=== PATIENT | male | born 1935 | race Caucasian/White ===

== ENCOUNTER 2019-06-12 01:22 | Inpatient (IN) | payer MEDICARE ==
[~2019-06-12] VITALS: Ht 165.1 cm; Wt 44.5 kg
[2019-06-12 01:30] VITALS: BP 129/70
--- NOTE | 2019-06-12 01:36 | Emergency Room Report ---
History of Present Illness General Chief Complaint: Generalized Weakness Source: Patient, EMS Present Illness HPI Is an elderly 83-year-old male with no past medical history. He presents with complaint of generalized weakness. His neighbor was concerned about him. He is sits in his chair at home. He complained of abdominal pain is been going on for years but getting worse. Also decreased appetite not eating much. He said he was at [facility] about a month and a half ago. Does not remember what they did. He complained of increasing weakness and pain. Weight loss. Nausea but no vomiting. Worse with eating. Allergies: Coded Allergies: No Known Allergies (Unverified , 06/12/19) Patient History Past Medical History: see triage record, old chart reviewed Past Surgical History: other Pertinent Family History: none Social History: Denies: smoking Immunizations: other Reviewed Nursing Documentation: PMH: Agreed; PSxH: Agreed Nursing Documentation-PM Past Medical History: No Stated History Review of Systems Constitutional: Reports: malaise, weakness Eye: Denies: eye pain, blurred vision ENT: Denies: ear pain, nose congestion, throat swelling Respiratory: Denies: cough, shortness of breath Cardiovascular: Denies: chest pain, palpitations Gastrointestinal: Reports: abdominal pain, nausea; Denies: diarrhea, vomiting Musculoskeletal: Denies: back pain, joint pain Skin: Denies: rash Neurological: Denies: headache, numbness Endocrine: Denies: increased thirst, increased urine Hematologic/Lymphatic: Denies: easy bruising All Other Systems: negative except mentioned in HPI Physical Exam Vital Signs Date Time Temp Pulse Resp B/P (MAP) Pulse Ox O2 Delivery O2 Flow Rate FiO2 06/12/19 01:19 99.0 100 18 129/70 (89) 98 Room Air Vitals with low-grade fever Sp02 EP Interpretation: reviewed, normal General Appearance: alert, mild distress, cachetic Head: normocephalic, atraumatic Eyes: bilateral eye PERRL, bilateral eye EOMI ENT: hearing grossly normal, normal pharynx Neck: full range of motion, supple, no meningismus Respiratory: chest non-tender, decreased breath sounds, accessory muscle use Cardiovascular #1: regular rate, rhythm, no murmur Gastrointestinal: no mass, no organomegaly, no bruit, non-distended, tenderness - Diffuse, decreased bowel sounds Musculoskeletal: back normal, normal range of motion, gait/station normal, swelling - b/l lower ext edema Psychiatric: mood/affect normal Medical Decision Making Diagnostic Impression: Primary Impression: Pneumonia Qualified Codes: J18.9 - Pneumonia, unspecified organism Additional Impressions: Failure to thrive in adult Cachexia ER Course This is an 83-year-old patient who is very cachectic looking. He came in with weakness and shortness of breath. He has a left lower lobe infiltrate. Antibiotics given. IV fluids given. Patient lives by himself at home and can take care of himself. Likely there is a neighbor whom patient called to help him. She called 911 and brought him in. Patient will need placement or potential hospice care. No evidence of ACS, PE, dissection to name a few. I discussed the case with Dr. Bray for admission. EKG Diagnostic Results Rate: normal Rhythm: NSR ST Segments: no acute changes Rhythm Strip Diag. Results EP Interpretation: yes Rate: 100 Rhythm: NSR, no PVC's, no ectopy Chest X-Ray Diagnostic Results Chest X-Ray Diagnostic Results : Chest X-Ray Ordered: Yes # of Views/Limited/Complete: 1 View Indication: Shortness of Breath EP Interpretation: Yes Interpretation: no effusion, no pneumothorax, other - LLL infiltrate. hyperinflation Impression: Other - LLL infiltrate Electronically Signed by: Terry Mars MD Last Vital Signs Date Time Temp Pulse Resp B/P (MAP) Pulse Ox O2 Delivery O2 Flow Rate FiO2 06/12/19 01:19 99.0 100 18 129/70 (89) 98 Room Air Status: improved Disposition: ADMITTED INPATIENT Condition: Serious Terry Mars MD Jun 12, 2019 01:36
--- NOTE | 2019-06-12 01:45 | NUR ---
ED Nurse Note: pt presents to ED via [facility] 826. per EMS they picked him up from home, a neighbor called and was concerned for him because pt has been weak. per pt, he states he "doesn't want to take care of himself." pt denies bathing regularly, states that he sits in a chair all day and does not move around. pt states taht he has epigastric px for 5-6 years that has worsened in the last year. the px causes pt to became nauseated so he has not been eating or drinking much fluid. pt denies any vomiting or diarrhea. pt sees Dr. Summers at [facility] where he was last seen a couple months ago. Addendum: 06/12/19 at 0215 by QLE bilat pitting edema 3+ of lower extremities with weak pulses noted. pt's neighbor is at bedside Tere Nickerson # [phone] Addendum: 06/12/19 at 0248 by QLE pt arrived via [id number]
--- NOTE | 2019-06-12 01:50 | NUR ---
ED Nurse Note: pt appears to be cachetic and disheveled. his bones are visible, skin is flaking with healed scabs and lesions. pt is AOx4.
--- NOTE | 2019-06-12 02:02 | NUR ---
ED Nurse Note: pt states he had a CT a few months ago and refused to have another one done today. ERMD aware
[2019-06-12] MEDS ORDERED: Piperacillin/Tazobactam 3.375 GM in NS 110 ML IVPB ONE (02:15)
[2019-06-12 02:28] LABS: APPEARANCE,URINE CLEAR; BILIRUBIN, URINE NEGATIVE (NEGATIVE); COLOR,URINE PALE YELLOW; GLUCOSE, URINE (UA) NEGATIVE (NEGATIVE); KETONES,URINE NEGATIVE (NEGATIVE); LEUKOCYTE ESTERASE ,URINE 2+ (NEGATIVE); NITRITE,URINE NEGATIVE (NEGATIVE); PH,URINE 8 (4.5-8.0); PROTEIN,URINE 1+ (NEGATIVE); UROBILINOGEN,URINE NORMAL MG/DL (0.0-1.0)
[2019-06-12 02:29] LABS: HEMATOCRIT 36.4 % (42.0-52.0); MEAN CORPUSCULAR VOLUME 92 FL (80-99); PLATELET COUNT 228 K/UL (150-450); RED BLOOD COUNT 3.95 M/UL (4.70-6.10); WHITE BLOOD COUNT 4.2 K/UL (4.8-10.8)
--- NOTE | 2019-06-12 02:34 | NUR ---
Neighbor Tere Liya left her number [phone] to be called if needed.
[2019-06-12 02:46] LABS: ANION GAP 3 mmol/L (5-15); BLOOD UREA NITROGEN 12 mg/dL (7-18); CALCIUM 8.5 MG/DL (8.5-10.1); CARBON DIOXIDE 36 MMOL/L (21-32); CHLORIDE 89 MMOL/L (98-107); CREATININE 0.9 MG/DL (0.55-1.30); POTASSIUM 4.3 MMOL/L (3.5-5.1); SODIUM 128 MMOL/L (136-145)
--- NOTE | 2019-06-12 02:47 | Diagnostic Imaging Report ---
EXAM: XR Chest, 1 View CLINICAL HISTORY: SOB TECHNIQUE: Frontal view of the chest. COMPARISON: No relevant prior studies available. FINDINGS: Lungs: Heterogeneous opacity at the left lung base. No interstitial edema. Emphysematous changes. Pleural space: Unremarkable. No pneumothorax. Heart: Unremarkable. No cardiomegaly. Mediastinum: Unremarkable. Bones/joints: Unremarkable. IMPRESSION: Heterogeneous opacity at the left lung base consistent with pneumonia in the appropriate clinical setting.
[2019-06-12 02:50] LABS: ALANINE AMINOTRANSFERASE 29 U/L (12-78); ALBUMIN 3.1 G/DL (3.4-5.0); ALBUMIN/GLOBULIN RATIO 0.9 (1.0-2.7); ALKALINE PHOSPHATASE 98 U/L (46-116); ASPARTATE AMINO TRANSFERASE 32 U/L (15-37); BILIRUBIN,TOTAL 0.7 MG/DL (0.2-1.0)
[2019-06-12 03:10] VITALS: BP 127/73
--- NOTE | 2019-06-12 04:30 | NUR ---
TRANSFER TO FLOOR: Patient transferred to med/surg as ordered, per ERMD Dr. Mars. Report given to YOHAN Lira and reminded Soraya to ask Dr. Bray for social work order per pt request. . Belongings sent with pt. neighbor Tere Nickerson notified of admit and new room location
--- NOTE | 2019-06-12 04:40 | NUR ---
NURSE NOTES: Pt received from ER, A/O X 4, able to make needs known, pt with swollen bilateral extremeties +2 or +3 edema, sacral redness, opening of the skin on left upper thigh (posterior), pictures taken and uploaded, IV site on Rt forearm, no c/o pain or signs of distress just pt continuously stating he wants to and go to [facility] [place] [facility]. Pt also stated he wants to speak with a social psychologist about his living situation because he does not have anyone to help him at home, he lives by himself, he states he already has a social psychologist on [address] [place] [address] and [place]. Vitals 97.5 T, 96/58, 92%O2 room air, 97hr, pt here with FTT, weakness and pna, will call Dr. Bray for orders.
[2019-06-12] MEDS ORDERED: Albuterol ud Inhalation HHN PRN (06:45)
--- NOTE | 2019-06-12 07:03 | NUR ---
HAND-OFF: Report given to YOHAN Sampson.
[2019-06-12] MEDS ORDERED: GABAPENTIN100 MG ORAL (07:06)
[2019-06-12] MEDS ORDERED: terazosin (07:06)
[2019-06-12 08:00] VITALS: BP 112/59
--- NOTE | 2019-06-12 09:30 | NUR ---
NURSE NOTES: PT AXOX4, ANXIOUS, TALKATIVE. VSS AND IN NO APPARENT DISTRESS AT THIS TIME. BED IN LOWEST POSITION WITH BEDSIDE RAILS X3 RAISED. BED ALARM ON. WILL CONTINUE TO MONITOR.
[2019-06-12] MEDS: Heparin 5000 units/ml inj SUBQ SCH ×2 (10:11→21:10)
--- NOTE | 2019-06-12 10:16 | NUR ---
RD ASSESSMENT & RECOMMENDATIONS SEE CARE ACTIVITY FOR COMPLETE ASSESSMENT DAILY ESTIMATED NEEDS: Needs based on Underweight, wasting/ 45.5kg 30-40 kcals/kg 0543-5945 total kcals 1-2 g protein/kg 46-91 g total protein 25-30 mL/kg 5564-7205 total fluid mLs NUTRITION DIAGNOSIS: Malnutrition (severe), in the context of chronic illness R/T years of epigastric pain and gastric acid, abdominal discomfort causing poor oral intake, increased weakness, unable to care well for self, lack of help at home as evidenced by pt admitted w/ severe wasting @ BUE, clavicle area and temporalis, less than 75% of energy intakes compared to estimated needs for months, pt unable to quantify. CURRENT DIET:REGULAR, soft easy chew PO DIET RECOMMENDATIONS: REGULAR, BLAND/ texture as tolerated or per TRAINING AND QUALITY MANAGER ADDITIONAL RECOMMENDATIONS: * Calibrated bedscale wt, weekly wt monitoring given underweight status * Ensure Enlive TID w/ meals * GI consult for c/o epigastric pain/ gastric acid * Snacks BID in b/w meals as tolerated * Monitor lytes, replete as needed * Wound care: MVI x 1, Vit C 250mg QD as tolerated
[2019-06-12] MEDS: cefTRIAXone 1 GM in D5W 55 ML IVPB SCH (10:26)
[2019-06-12] MEDS: Flonase Nasal Inhaler 16gm NASAL SCH ×2 (11:50→11:54)
[2019-06-12 12:00] VITALS: BP 95/50
--- NOTE | 2019-06-12 14:50 | Consultation ---
History of Present Illness General Date patient seen: Jun 12, 2019 Reason for Hospitalization: Generalized Weakness Present Illness HPI Is an elderly 83-year-old male with no past medical history. He presents with complaint of generalized weakness. His neighbor was concerned about him. He is sits in his chair at home. He complained of abdominal pain is been going on for years but getting worse. Also decreased appetite not eating much. He said he was at [facility] about a month and a half ago. Does not remember what they did. He complained of increasing weakness and pain. Weight loss. Nausea but no vomiting. Worse with eating. On admission abnormal labs, notable open wound, malnutrition. surgery called to evaluate and assist with care. Allergies: Coded Allergies: No Known Allergies (Unverified , 06/12/19) Medication History Scheduled Gabapentin* (Gabapentin*), Unknown Dose ORAL TWICE A DAY, (Reported) Miscellaneous Medications [terazosin], (Reported) Patient History Limited by: age, medical condition History Provided By: Medical Record, PMD Healthcare decision maker Resuscitation status Full Code Advanced Directive on File Past Medical/Surgical History Past Medical/Surgical History: (1) Open wound (2) Open wound of thigh (3) Abdominal pain (4) Cachexia (5) Failure to thrive in adult (6) Pneumonia Review of Systems Review of Symptoms General ROS: no weight loss or fever Psychological ROS: no depression or mood changes, no memory loss Ophthalmic ROS: no visual changes or eye irritation ENT ROS: no nasal congestion, hearing loss, dizziness Allergy and Immunology ROS: no allergic symptoms or urticaria Hematological and Lymphatic ROS: no swollen glands, unusual bleeding or bruising Endocrine ROS: no polyuria, polydipsia, weight changes, temperature intolerance Respiratory ROS: no cough, shortness of breath, or wheezing Cardiovascular ROS: no chest pain or dyspnea on exertion Gastrointestinal ROS: abdominal pain, bright red blood in stool. Musculoskeletal ROS: no myalgias or arthralgias Neurological ROS: no TIA or stroke symptoms Dermatological ROS: no new or changing skin lesions, rashes or pruritis Physical Exam Physical Exam General appearance: alert, cooperative, no distress, appears stated age Head: Normocephalic, without obvious abnormality, atraumatic Eyes: conjunctivae/corneas clear. PERRL, EOM's intact. Fundi benign Throat: Lips, mucosa, and tongue normal. Teeth and gums normal Neck: supple, symmetrical, trachea midline, no adenopathy, thyroid: not enlarged, symmetric, no tenderness/mass/nodules, no carotid bruit and no JVD Lungs: clear to auscultation bilaterally Heart: regular rate and rhythm, S1, S2 normal, no murmur, click, rub or gallop Abdomen: soft, non-tender but uncomfortable. Bowel sounds normal. No masses, no organomegaly Extremities: extremities normal, atraumatic, no cyanosis or edema Pulses: 2+ and symmetric Skin: Skin color, texture, turgor normal. sacral erythema and thigh open wound Neurologic: Grossly normal Last 24 Hour Vital Signs Date Time Temp Pulse Resp B/P (MAP) Pulse Ox O2 Delivery O2 Flow Rate FiO2 06/12/19 08:00 96.3 93 18 112/59 (76) 91 06/12/19 05:06 Room Air 06/12/19 04:30 99.0 102 13 111/74 95 Room Air 06/12/19 03:10 102 13 127/73 95 Room Air 06/12/19 01:30 100 18 Room Air 06/12/19 01:30 99.0 90 18 129/70 98 Room Air 06/12/19 01:19 99.0 100 18 129/70 (89) 98 Room Air Intake and Output 06/11/19 06/12/19 19:00 07:00 Intake Total 2500 ml Balance 2500 ml Intake Oral 0 ml IV Total 2500 ml Laboratory Tests Test 06/12/19 01:39 06/12/19 02:00 White Blood Count 4.2 K/UL (4.8-10.8) L Red Blood Count 3.95 M/UL (4.70-6.10) L Hemoglobin 13.0 G/DL (14.2-18.0) L Hematocrit 36.4 % (42.0-52.0) L Mean Corpuscular Volume 92 FL (80-99) Mean Corpuscular Hemoglobin 33.0 PG (27.0-31.0) H Mean Corpuscular Hemoglobin Concent 35.8 G/DL (32.0-36.0) Red Cell Distribution Width 11.0 % (11.6-14.8) L Platelet Count 228 K/UL (150-450) Mean Platelet Volume 4.7 FL (6.5-10.1) L Neutrophils (%) (Auto) % (45.0-75.0) Lymphocytes (%) (Auto) % (20.0-45.0) Monocytes (%) (Auto) % (1.0-10.0) Eosinophils (%) (Auto) % (0.0-3.0) Basophils (%) (Auto) % (0.0-2.0) Differential Total Cells Counted 100 Neutrophils % (Manual) 89 % (45-75) H Lymphocytes % (Manual) 5 % (20-45) L Monocytes % (Manual) 4 % (1-10) Eosinophils % (Manual) 2 % (0-3) Basophils % (Manual) 0 % (0-2) Band Neutrophils 0 % (0-8) Platelet Estimate Adequate Platelet Morphology Normal Red Blood Cell Morphology Normal Sodium Level 128 MMOL/L (136-145) L Potassium Level 4.3 MMOL/L (3.5-5.1) Chloride Level 89 MMOL/L (98-107) L Carbon Dioxide Level 36 MMOL/L (21-32) H Anion Gap 3 mmol/L (5-15) L Blood Urea Nitrogen 12 mg/dL (7-18) Creatinine 0.9 MG/DL (0.55-1.30) Estimat Glomerular Filtration Rate mL/min (>60) Glucose Level 103 MG/DL (74-106) Calcium Level 8.5 MG/DL (8.5-10.1) Total Bilirubin 0.7 MG/DL (0.2-1.0) Aspartate Amino Transf (AST/SGOT) 32 U/L (15-37) Alanine Aminotransferase (ALT/SGPT) 29 U/L (12-78) Alkaline Phosphatase 98 U/L (46-116) Troponin I 0.006 ng/mL (0.000-0.056) Total Protein 6.6 G/DL (6.4-8.2) Albumin 3.1 G/DL (3.4-5.0) L Globulin 3.5 g/dL Albumin/Globulin Ratio 0.9 (1.0-2.7) L Lipase 152 U/L (73-393) Urine Color Pale yellow Urine Appearance Clear Urine pH 8 (4.5-8.0) Urine Specific [place] 1.015 (1.005-1.035) Urine Protein 1+ (NEGATIVE) H Urine Glucose (UA) Negative (NEGATIVE) Urine Ketones Negative (NEGATIVE) Urine Blood 1+ (NEGATIVE) H Urine Nitrite Negative (NEGATIVE) Urine Bilirubin Negative (NEGATIVE) Urine Urobilinogen Normal MG/DL (0.0-1.0) Urine Leukocyte Esterase 2+ (NEGATIVE) H Urine RBC 5-10 /HPF (0 - 0) H Urine WBC 0-2 /HPF (0 - 0) Urine Squamous Epithelial Cells Occasional /LPF Urine Bacteria Occasional /HPF (NONE) Height (Feet): 5 Height (Inches): 5.00 Weight (Pounds): 100 Medications Current Medications Medications (Trade) Dose Ordered Sig/Daina Route PRN Reason Start Time Stop Time Status Last Admin Dose Admin Acetaminophen (Tylenol) 650 mg Q4H PRN ORAL Mild Pain/Temp > 100.5 06/12/19 06:45 07/12/19 06:44 Al Hydroxide/Mg Hydroxide (Mylanta) 30 ml FOUR TIMES A DAY PRN ORAL gas 06/12/19 06:45 07/12/19 06:44 Albuterol Sulfate (Proventil) 2.5 mg Q4H PRN HHN Shortness of Breath 06/12/19 06:45 06/17/19 06:44 Ceftriaxone Sodium 1 gm/ Dextrose 55 ml @ 110 mls/hr Q24H IVPB 06/12/19 09:00 06/19/19 08:59 06/12/19 10:26 Fluticasone Propionate (Flonase) 1 spray DAILY NASAL 06/12/19 10:30 07/12/19 10:29 06/12/19 11:54 Gabapentin (Neurontin) 300 mg BID ORAL 06/12/19 09:00 07/12/19 08:59 06/12/19 09:55 Heparin Sodium (Porcine) (Heparin 5000 units/ml) 5,000 units EVERY 12 HOURS SUBQ 06/12/19 09:00 07/12/19 08:59 06/12/19 10:11 Pantoprazole (Protonix) 40 mg DAILY ORAL 06/12/19 09:00 07/12/19 08:59 06/12/19 09:55 Terazosin HCl (Hytrin) 2 mg BEDTIME ORAL 06/12/19 21:00 07/12/19 20:59 Assessment/Plan Problem List: (1) Cachexia ICD Codes: R64 - Cachexia SNOMED: 974185612 (2) Failure to thrive in adult Assessment & Plan: DAILY ESTIMATED NEEDS: Needs based on Underweight, wasting/ 45.5kg 30-40 kcals/kg 4991-4369 total kcals 1-2 g protein/kg 46-91 g total protein 25-30 mL/kg 7851-2644 total fluid mLs NUTRITION DIAGNOSIS: Malnutrition (severe), in the context of chronic illness R/T years of epigastric pain and gastric acid, abdominal discomfort causing poor oral intake, increased weakness, unable to care well for self, lack of help at home as evidenced by pt admitted w/ severe wasting @ BUE, clavicle area and temporalis, less than 75% of energy intakes compared to estimated needs for months, pt unable to quantify. CURRENT DIET:REGULAR, soft easy chew PO DIET RECOMMENDATIONS: REGULAR, BLAND/ texture as tolerated or per ANNUAL GIVING MANAGER ADDITIONAL RECOMMENDATIONS: * Calibrated bedscale wt, weekly wt monitoring given underweight status * Ensure Enlive TID w/ meals * GI consult for c/o epigastric pain/ gastric acid * Snacks BID in b/w meals as tolerated * Monitor lytes, replete as needed * Wound care: MVI x 1, Vit C 250mg QD as tolerated ICD Codes: R62.7 - Adult failure to thrive SNOMED: 792798859 (3) Open wound ICD Codes: T14.8XXA - Other injury of unspecified body region, initial encounter SNOMED: 317157033 (4) Abdominal pain Assessment & Plan: c/o abdominal discomfort ongoing for years but feels getting worse likely constipation PPI mom KUB ordered US ordered will follow with recs ICD Codes: R10.9 - Unspecified abdominal pain SNOMED: 38866839 (5) Open wound of thigh Assessment & Plan: patient identified on admission to have a left posterior prominal thigh open wound 2cm x 1cm x 1cm with 100% sloth and some barbie wound erythema. mild odor. no drainage. likely seems to have been prior small abscess or carbuncle that has opened up and not healed well also has sacral erythema stage 1 noted wash left thigh wound daily with NS, apply therahoney gauze and dressing daily may require debridement skin protectant for sacral area and optifoam dressing turn q2h off load pressure with pillows nutritional optimization will follow with recs ICD Codes: S71.109A - Unspecified open wound, unspecified thigh, initial encounter SNOMED: [id number] Devyn Mejia Jun 12, 2019 14:50
[2019-06-12 16:00] VITALS: BP 99/50
--- NOTE | 2019-06-12 16:02 | NUR ---
CASE MANAGEMENT: INITIAL REVIEW 83 YO M SYLVESTER INMAN FROM HOME CC: GEN WEAKNESS. FTT PMHx: DENIES Si:FTT. GEN WEAKNESS. T 99 HR 100 RR 18 B/P 129/70 SATS 98% ON RA WBC 4.2 NA 128 CL 89 CO2 36 IS:NS BOLUS X1 ZOSYN IV X1 LEVAQUIN IV X1 EKG NSR, no PVC's, no ectopy PATIENT ADMITTED TO MED/SURG 06/12/2019 @ 0428 DCP: PATIENT TO BE DISCHARGED TO HOME ONCE MEDICALLY CLEARED. PLAN OF CARE: VENOUS DUPLEX SSW CONSULT PT EVAL Addendum: 06/12/19 at 1646 by Hilda Dennison CM INTERQUAL MET
--- NOTE | 2019-06-12 19:30 | NUR ---
HAND-OFF: Report given to Viv GUPTA RN.
[2019-06-12 20:00] VITALS: BP 127/61
--- NOTE | 2019-06-12 20:02 | NUR ---
NURSE NOTES: Received patient in bed, awake, very talkative, anxious, IV site is clean dry and intact, on regular diet, on room air, no acute distress noted. Call light is within reach, bed is lowered, locked and alarm is on. Will continue to monitor for comfort and safety.
[2019-06-12] MEDS: Terazosin 1mg cap ORAL SCH (21:09)
--- NOTE | 2019-06-12 21:15 | History and Physical Report ---
DATE OF ADMISSION: 06/12/2019 HISTORY OF PRESENT ILLNESS: This is an 83-year-old male without any clear prior medical history. The patient presents with generalized weakness. The patient has fairly to thrive and apparently lives alone. The patient also noted to have some abdominal pain, poor p.o. intake. The patient apparently was at an outside facility approximately 1 to 2 months ago, does not remember as to the underlying cause. The patient now remains at home, notes that he is having some nausea, which apparently has worsened with eating. The patient did have some laboratory data revealing fairly normal parameter, sodium level was low, albumin was low. The patient now admitted for failure to thrive and further evaluation, possible placement, also possibly pneumonia. PAST MEDICAL HISTORY: Otherwise negative. MEDICATIONS: None. PAST SURGICAL HISTORY: None. FAMILY HISTORY: The patient denies any significant heart or lung disease. SOCIAL HISTORY: The patient lives alone. Nonsmoker and nondrinker at present. REVIEW OF SYSTEMS: All 10 points reviewed and otherwise negative with the exception of all those described above and notable malaise, weakness, fatigue, weight loss, abdominal pain, and nausea. PHYSICAL EXAMINATION: GENERAL: A well-developed male, frail overall. VITAL SIGNS: Reviewed. Blood pressure 111/74, pulse 102, respiratory rate 13, temperature 99, sat 95% on room air. HEENT: Negative. Extraocular movements are grossly intact. NECK: Supple. Without jugular venous distention. LUNGS: Fairly clear and symmetric. CARDIAC: S1 and S2. Regular rate and rhythm. Borderline tachycardia without murmurs, rubs, gallops. ABDOMEN: Soft, nontender, nondistended. EXTREMITIES: No cyanosis, clubbing, or edema. NEUROLOGIC: Grossly nonfocal and weak. LABORATORY DATA: Chest x-ray with possible pneumonia. White count 4.2, hematocrit 36, and platelets of 228. Sodium 128, electrolytes are otherwise normal. Albumin is 3.1. IMPRESSION: 1. Failure to thrive. 2. Protein-calorie malnutrition. 3. Mild hyponatremia. 4. Contraction alkalosis, likely mild leukopenia. 5. Anemia. 6. Possible cognitive dysfunction. RECOMMENDATIONS: Supportive care. IV hydration. Physical therapy evaluation and empiric antibiotics for possible underlying pneumonia. Nebulized therapy as needed. DVT prophylaxis and assess for short-term rehabilitation and placement. Yahir Bray M.D. DR: Guillaume JOB#: [id number] CC:
[2019-06-13] VITALS: BP 99/67
[2019-06-13 04:00] VITALS: BP 101/84
--- NOTE | 2019-06-13 07:00 | NUR ---
HAND-OFF: Report given to Brandi ALMANZAR.
[2019-06-13 07:05] LABS: HEMATOCRIT 28.9 % (42.0-52.0); HEMOGLOBIN 10.3 G/DL (14.2-18.0); MEAN CORPUSCULAR VOLUME 92 FL (80-99); PLATELET COUNT 146 K/UL (150-450); RED BLOOD COUNT 3.14 M/UL (4.70-6.10); RED CELL DISTRIBUTION WIDTH 10.9 % (11.6-14.8); WHITE BLOOD COUNT 4.2 K/UL (4.8-10.8)
[2019-06-13 07:25] LABS: ALANINE AMINOTRANSFERASE 19 U/L (12-78); ALBUMIN/GLOBULIN RATIO 0.7 (1.0-2.7); ALKALINE PHOSPHATASE 57 U/L (46-116); AMYLASE 75 U/L (25-115); ANION GAP 2 mmol/L (5-15); ASPARTATE AMINO TRANSFERASE 32 U/L (15-37); BILIRUBIN,TOTAL 0.6 MG/DL (0.2-1.0); BLOOD UREA NITROGEN 14 mg/dL (7-18); CALCIUM 8.1 MG/DL (8.5-10.1); CARBON DIOXIDE 33 MMOL/L (21-32); CHLORIDE 97 MMOL/L (98-107); CREATININE 0.7 MG/DL (0.55-1.30); POTASSIUM 3.9 MMOL/L (3.5-5.1); SODIUM 132 MMOL/L (136-145)
[2019-06-13 07:26] LABS: INR 1.3 (0.9-1.1)
--- NOTE | 2019-06-13 07:42 | NUR ---
NURSE NOTES: received patient in bed, no complaint of pain or discomfort, no distress noted. Reinforced to patient he is NPO and not supposed to eat or drink until imaging tests are done.RFA IV access, on TKO. Call light within easy reach, siderails upx2, bed locked at the lowest position possible. On bed alarm. Will continue to monitor patient and follow up with the plan of care.
[2019-06-13 08:00] VITALS: BP 100/55
--- NOTE | 2019-06-13 08:00 | NUR ---
NURSE NOTES: received patient in bed, awake, no complaint of pain. patient complains he wants to eat, and is currently NPO due to abdominal X ray ordered. Explained to patient necessity of keeping NPO. Call light within easy reach, siderails up x2, bed locked at hte lowest position possible. Will continue to monitor patient and follow up with the plan of care.
[2019-06-13] MEDS: Heparin 5000 units/ml inj SUBQ SCH ×2 (09:00→20:48)
[2019-06-13] MEDS: cefTRIAXone 1 GM in D5W 55 ML IVPB SCH (09:46)
[2019-06-13] MEDS: Flonase Nasal Inhaler 16gm NASAL SCH (09:47)
[2019-06-13] MEDS: Ascorbic Acid 500mg tab ORAL SCH (09:48)
--- NOTE | 2019-06-13 11:39 | General Progress Note ---
Assessment/Plan Assessment/Plan: IMPRESSION: 1. Failure to thrive. 2. Protein-calorie malnutrition. 3. Mild hyponatremia. 4. Contraction alkalosis, likely mild leukopenia. 5. Anemia. 6. Possible cognitive dysfunction. PLAN wound care needs placement doubt safe to go home CM to assist impression, plan, and exam edited and reviewed in detail care discussed with RN Subjective Allergies: Coded Allergies: No Known Allergies (Unverified , 06/12/19) Subjective care noted wants to go home to alert and oriented x3 Objective Last 24 Hour Vital Signs Date Time Temp Pulse Resp B/P (MAP) Pulse Ox O2 Delivery O2 Flow Rate FiO2 06/13/19 09:00 Room Air 06/13/19 08:00 97.9 67 18 100/55 (70) 95 06/13/19 04:00 98.9 84 20 101/84 (90) 98 06/13/19 00:00 98.0 95 22 99/67 (78) 98 06/12/19 21:34 Room Air 06/12/19 20:00 98.5 89 22 127/61 (83) 95 06/12/19 16:00 97.9 81 19 99/50 (66) 95 06/12/19 12:00 97.2 81 18 95/50 (65) 93 Intake and Output 06/12/19 06/13/19 19:00 07:00 Intake Total 415 ml Balance 415 ml Intake Oral 360 ml IV Total 55 ml # Voids 3 Laboratory Tests 06/13/19 05:20: White Blood Count 4.2L, Red Blood Count 3.14L, Hemoglobin 10.3L, Hematocrit 28.9L, Mean Corpuscular Volume 92, Mean Corpuscular Hemoglobin 32.7H, Mean Corpuscular Hemoglobin Concent 35.5, Red Cell Distribution Width 10.9L, Platelet Count 146L, Mean Platelet Volume 4.9L, Neutrophils (%) (Auto) , Lymphocytes (%) (Auto) , Monocytes (%) (Auto) , Eosinophils (%) (Auto) , Basophils (%) (Auto) , Differential Total Cells Counted 100, Neutrophils % ( Manual) 77H, Lymphocytes % (Manual) 7L, Monocytes % (Manual) 5, Eosinophils % ( Manual) 0, Basophils % (Manual) 0, Band Neutrophils 11H, Platelet Estimate DecreasedL, Platelet Morphology Normal, Red Blood Cell Morphology Normal, Erythrocyte Sedimentation Rate 22H, Prothrombin Time 13.5H, Prothromb Time International Ratio 1.3H, Activated Partial Thromboplast Time 43H, Sodium Level 132L, Potassium Level 3.9, Chloride Level 97L, Carbon Dioxide Level 33H, Anion Gap 2L, Blood Urea Nitrogen 14, Creatinine 0.7, Estimat Glomerular Filtration Rate , Glucose Level 85, Calcium Level 8.1L, Total Bilirubin 0.6, Aspartate Amino Transf (AST/SGOT) 32, Alanine Aminotransferase (ALT/SGPT) 19, Alkaline Phosphatase 57, C-Reactive Protein, Quantitative 12.2H, Total Protein 4.9L, Albumin 2.0L, Globulin 2.9, Albumin/Globulin Ratio 0.7L, Amylase Level 75, Lipase 116, Thyroid Stimulating Hormone (TSH) 0.742 Height (Feet): 5 Height (Inches): 5.00 Weight (Pounds): 100 Objective GENERAL: A well-developed male, frail overall. NAD wounds noted HEENT: Negative. Extraocular movements are grossly intact. NECK: Supple. Without jugular venous distention. LUNGS: Fairly clear and symmetric. CARDIAC: S1 and S2. Regular rate and rhythm. Borderline tachycardia without murmurs, rubs, gallops. ABDOMEN: Soft, nontender, nondistended. EXTREMITIES: No cyanosis, clubbing, or edema. NEUROLOGIC: Grossly nonfocal and weak. reviewed and edited Yahir Bray MD Jun 13, 2019 11:39
[2019-06-13 12:00] VITALS: BP 108/54
--- NOTE | 2019-06-13 14:01 | NUR ---
CHARGE NURSE NOTE: Pt refused US abdomen - notified.
--- NOTE | 2019-06-13 14:30 | Consultation ---
DATE OF CONSULTATION: 06/13/2019 CONSULTING PHYSICIAN: Aroldo Shah M.D. CHIEF COMPLAINT: GERD, abdominal pain, nausea. HISTORY OF PRESENT ILLNESS: This is an 83-year-old male without any significant past medical history was brought to the hospital with complaint of abdominal pain, acid reflux. He stated he was taking Gaviscon, but the Gaviscon was not working. Every time he eats, later he gets pain and acid reflux and nausea. The patient also has weight loss. PAST MEDICAL HISTORY: None. ALLERGIES: None. MEDICATIONS: None. SOCIAL HISTORY: The patient denies any tobacco, alcohol, or illicit drug abuse. FAMILY HISTORY: Noncontributory. PAST SURGICAL HISTORY: None. PHYSICAL EXAMINATION: VITAL SIGNS: Temperature 98.9, pulse 84, respirations 20, blood pressure 101/84. HEENT: Normocephalic and atraumatic. Sclerae anicteric. NECK: Supple. No evidence of obvious lymphadenopathy. CARDIOVASCULAR: Regular rate and rhythm. Plus S1 and S2. LUNGS: Clear to auscultation bilaterally. ABDOMEN: Positive bowel sounds. Soft and nontender. No rebound. No guarding. No peritoneal sign. EXTREMITIES: No cyanosis. No clubbing. LABORATORY DATA: White count is 4.2, hemoglobin 13, hematocrit 36, platelet count is 228,000. ASSESSMENT: 1. Failure to thrive. 2. Chronic reflux disease. 3. Abdominal pain. 4. Hyponatremia. 5. Possible pneumonia. PLAN: 1. Protonix 40 mg p.o. daily. 2. Reflux measures. 3. Abdominal ultrasound. 4. Swallow evaluation. 5. Repeat laboratories for tomorrow including CBC, CMP, CEA, and thyroid panel. I want to thank Dr. Bray for this kind referral. Aroldo Shah M.D. DR: EUGENIA JOB#: [id number] CC: Yahir Bray M.D.; Fax#: [phone]
--- NOTE | 2019-06-13 14:45 | Diagnostic Imaging Report ---
Indication: Abdominal pain Technique: Supine view of the abdomen Comparison: none Findings: Unremarkable bowel gas pattern. No masses or unusual calcifications demonstrated. There is mild thoracolumbar scoliotic deformity and degenerative change. Degenerative changes of the hips are demonstrated. Nonspecific parenchymal opacities are seen at the visualized lung bases Impression: No acute abdominal process. Findings as noted This agrees with the preliminary interpretation provided overnight by [facility] service.
--- NOTE | 2019-06-13 15:00 | Surgery Progress Note ---
Surgery Progress Note Subjective Symptoms: improved Additional Comments no acute events states he feels well is eating well labs noted kub noted comfortable Objective Last 24 Hour Vital Signs Date Time Temp Pulse Resp B/P (MAP) Pulse Ox O2 Delivery O2 Flow Rate FiO2 06/13/19 12:00 98.4 69 17 108/54 (72) 95 06/13/19 09:00 Room Air 06/13/19 08:00 97.9 67 18 100/55 (70) 95 06/13/19 04:00 98.9 84 20 101/84 (90) 98 06/13/19 00:00 98.0 95 22 99/67 (78) 98 06/12/19 21:34 Room Air 06/12/19 20:00 98.5 89 22 127/61 (83) 95 06/12/19 16:00 97.9 81 19 99/50 (66) 95 I&O Intake and Output 06/12/19 06/13/19 19:00 07:00 Intake Total 415 ml Balance 415 ml Intake Oral 360 ml IV Total 55 ml # Voids 3 Dressing: other Wound: other Drains: other Cardiovascular: RSR Respiratory: decreased breath sounds Abdomen: soft, present bowel sounds, non-distended Extremities: no edema, no tenderness, no cyanosis Laboratory Tests Test 06/13/19 05:20 White Blood Count 4.2 K/UL (4.8-10.8) L Red Blood Count 3.14 M/UL (4.70-6.10) L Hemoglobin 10.3 G/DL (14.2-18.0) L Hematocrit 28.9 % (42.0-52.0) L Mean Corpuscular Volume 92 FL (80-99) Mean Corpuscular Hemoglobin 32.7 PG (27.0-31.0) H Mean Corpuscular Hemoglobin Concent 35.5 G/DL (32.0-36.0) Red Cell Distribution Width 10.9 % (11.6-14.8) L Platelet Count 146 K/UL (150-450) L Mean Platelet Volume 4.9 FL (6.5-10.1) L Neutrophils (%) (Auto) % (45.0-75.0) Lymphocytes (%) (Auto) % (20.0-45.0) Monocytes (%) (Auto) % (1.0-10.0) Eosinophils (%) (Auto) % (0.0-3.0) Basophils (%) (Auto) % (0.0-2.0) Differential Total Cells Counted 100 Neutrophils % (Manual) 77 % (45-75) H Lymphocytes % (Manual) 7 % (20-45) L Monocytes % (Manual) 5 % (1-10) Eosinophils % (Manual) 0 % (0-3) Basophils % (Manual) 0 % (0-2) Band Neutrophils 11 % (0-8) H Platelet Estimate Decreased L Platelet Morphology Normal Red Blood Cell Morphology Normal Erythrocyte Sedimentation Rate 22 MM/HR (0-20) H Prothrombin Time 13.5 SEC (9.30-11.50) H Prothromb Time International Ratio 1.3 (0.9-1.1) H Activated Partial Thromboplast Time 43 SEC (23-33) H Sodium Level 132 MMOL/L (136-145) L Potassium Level 3.9 MMOL/L (3.5-5.1) Chloride Level 97 MMOL/L (98-107) L Carbon Dioxide Level 33 MMOL/L (21-32) H Anion Gap 2 mmol/L (5-15) L Blood Urea Nitrogen 14 mg/dL (7-18) Creatinine 0.7 MG/DL (0.55-1.30) Estimat Glomerular Filtration Rate mL/min (>60) Glucose Level 85 MG/DL (74-106) Calcium Level 8.1 MG/DL (8.5-10.1) L Total Bilirubin 0.6 MG/DL (0.2-1.0) Aspartate Amino Transf (AST/SGOT) 32 U/L (15-37) Alanine Aminotransferase (ALT/SGPT) 19 U/L (12-78) Alkaline Phosphatase 57 U/L (46-116) C-Reactive Protein, Quantitative 12.2 mg/dL (0.00-0.90) H Total Protein 4.9 G/DL (6.4-8.2) L Albumin 2.0 G/DL (3.4-5.0) L Globulin 2.9 g/dL Albumin/Globulin Ratio 0.7 (1.0-2.7) L Amylase Level 75 U/L (25-115) Lipase 116 U/L (73-393) Thyroid Stimulating Hormone (TSH) 0.742 uiU/mL (0.358-3.740) Plan Problems: (1) Cachexia (2) Failure to thrive in adult Assessment & Plan: DAILY ESTIMATED NEEDS: Needs based on Underweight, wasting/ 45.5kg 30-40 kcals/kg 4557-8603 total kcals 1-2 g protein/kg 46-91 g total protein 25-30 mL/kg 6647-4847 total fluid mLs NUTRITION DIAGNOSIS: Malnutrition (severe), in the context of chronic illness R/T years of epigastric pain and gastric acid, abdominal discomfort causing poor oral intake, increased weakness, unable to care well for self, lack of help at home as evidenced by pt admitted w/ severe wasting @ BUE, clavicle area and temporalis, less than 75% of energy intakes compared to estimated needs for months, pt unable to quantify. CURRENT DIET:REGULAR, soft easy chew PO DIET RECOMMENDATIONS: REGULAR, BLAND/ texture as tolerated or per AEROPHYSICS ENGINEER ADDITIONAL RECOMMENDATIONS: * Calibrated bedscale wt, weekly wt monitoring given underweight status * Ensure Enlive TID w/ meals * GI consult for c/o epigastric pain/ gastric acid * Snacks BID in b/w meals as tolerated * Monitor lytes, replete as needed * Wound care: MVI x 1, Vit C 250mg QD as tolerated (3) Open wound (4) Abdominal pain Assessment & Plan: c/o abdominal discomfort ongoing for years but feels getting worse likely constipation PPI mom Nonobstructive but nonspecific bowel gas pattern. No free air. Bibasilar opacities. Degenerative changes of the hips and spine. US ordered will follow with recs (5) Open wound of thigh Assessment & Plan: patient identified on admission to have a left posterior prominal thigh open wound 2cm x 1cm x 1cm with 100% sloth and some barbie wound erythema. mild odor. no drainage. likely seems to have been prior small abscess or carbuncle that has opened up and not healed well also has sacral erythema stage 1 noted wash left thigh wound daily with NS, apply therahoney gauze and dressing daily may require debridement skin protectant for sacral area and optifoam dressing turn q2h off load pressure with pillows nutritional optimization will follow with recs Devyn Mejia Jun 13, 2019 15:00
[2019-06-13 16:00] VITALS: BP 106/62
--- NOTE | 2019-06-13 16:56 | NUR ---
PT Note PT kristin completed, treatment initiated. Patient was resistant at first, then became more cooperative. He has muscle weakness and decreased sitting and standing balance, requiring extensive assist in his mobility. Patient needs PT to increase his ROM, muscle strength and balance to improve his functional mobility and gait. Addendum: 06/13/19 at 1657 by RHONDA RANDOLPH PT Amended: Links added.
--- NOTE | 2019-06-13 19:01 | NUR ---
HAND-OFF: Report given to YOHAN Long.
--- NOTE | 2019-06-13 19:30 | NUR ---
NURSE NOTES: Received patient in bed, asleep, eyes closed, patient is able to verbalize his needs, IV site is clean dry and intact, no acute distress noted, call light is within reach, bed is lowered, locked and alarm is on. Will continue to monitor for comfort and safety.
[2019-06-13 20:00] VITALS: BP 122/74
[2019-06-13] MEDS: Terazosin 1mg cap ORAL SCH (20:48)
[2019-06-14] VITALS (7 sets, daily range): BP systolic 113–141; BP diastolic 57–78
--- NOTE | 2019-06-14 07:18 | NUR ---
HAND-OFF: Report given to Brandi ALMANZAR.
[2019-06-14 07:22] LABS: HEMATOCRIT 29.9 % (42.0-52.0); HEMOGLOBIN 10.7 G/DL (14.2-18.0); MEAN CORPUSCULAR VOLUME 93 FL (80-99); PLATELET COUNT 169 K/UL (150-450); RED BLOOD COUNT 3.21 M/UL (4.70-6.10); RED CELL DISTRIBUTION WIDTH 11.2 % (11.6-14.8); WHITE BLOOD COUNT 5.6 K/UL (4.8-10.8)
[2019-06-14 07:59] LABS: ALANINE AMINOTRANSFERASE 23 U/L (12-78); ALBUMIN/GLOBULIN RATIO 0.6 (1.0-2.7); ALKALINE PHOSPHATASE 67 U/L (46-116); ANION GAP 2 mmol/L (5-15); ASPARTATE AMINO TRANSFERASE 35 U/L (15-37); BILIRUBIN,TOTAL 0.4 MG/DL (0.2-1.0); BLOOD UREA NITROGEN 19 mg/dL (7-18); CALCIUM 8.4 MG/DL (8.5-10.1); CARBON DIOXIDE 34 MMOL/L (21-32); CHLORIDE 97 MMOL/L (98-107); CREATININE 0.8 MG/DL (0.55-1.30); SODIUM 132 MMOL/L (136-145)
--- NOTE | 2019-06-14 08:29 | General Progress Note ---
Assessment/Plan Assessment/Plan: IMPRESSION: 1. Failure to thrive. 2. Protein-calorie malnutrition. 3. Mild hyponatremia. 4. Contraction alkalosis, likely mild leukopenia. 5. Anemia. 6. Possible cognitive dysfunction. 7. possible swallow dysfunction PLAN wound care needs placement- will coordinate doubt safe to go home CM to assist impression, plan, and exam edited and reviewed in detail care discussed with RN Subjective Allergies: Coded Allergies: No Known Allergies (Unverified , 06/12/19) Subjective care noted wants to go home to but not safe alert and oriented x3 now will agree to rehab Objective Last 24 Hour Vital Signs Date Time Temp Pulse Resp B/P (MAP) Pulse Ox O2 Delivery O2 Flow Rate FiO2 06/14/19 05:01 98.7 74 18 129/74 (92) 97 06/14/19 04:00 97.8 74 18 127/74 (91) 97 06/14/19 00:15 97.4 79 18 127/78 (94) 97 06/13/19 21:04 Room Air 06/13/19 20:00 98.8 87 21 122/74 (90) 97 06/13/19 16:00 98.4 63 18 106/62 (77) 97 06/13/19 12:00 98.4 69 17 108/54 (72) 95 06/13/19 09:00 Room Air Intake and Output 06/13/19 06/14/19 19:00 07:00 Intake Total 450 ml Balance 450 ml Other 450 ml Laboratory Tests 06/14/19 06:01: White Blood Count 5.6, Red Blood Count 3.21L, Hemoglobin 10.7L, Hematocrit 29.9L , Mean Corpuscular Volume 93, Mean Corpuscular Hemoglobin 33.2H, Mean Corpuscular Hemoglobin Concent 35.6, Red Cell Distribution Width 11.2L, Platelet Count 169, Mean Platelet Volume 5.7L, Neutrophils (%) (Auto) , Lymphocytes (%) (Auto) , Monocytes (%) (Auto) , Eosinophils (%) (Auto) , Basophils (%) (Auto) , Neutrophils % (Manual) [Pending], Lymphocytes % (Manual) [Pending], Platelet Estimate [Pending], Platelet Morphology [Pending], Sodium Level 132L, Potassium Level 4.0, Chloride Level 97L, Carbon Dioxide Level 34H, Anion Gap 2L, Blood Urea Nitrogen 19H, Creatinine 0.8, Estimat Glomerular Filtration Rate , Glucose Level 93, Calcium Level 8.4L, Total Bilirubin 0.4, Aspartate Amino Transf (AST/SGOT) 35, Alanine Aminotransferase (ALT/SGPT) 23, Alkaline Phosphatase 67, Total Protein 5.2L, Albumin 2.0L, Globulin 3.2, Albumin /Globulin Ratio 0.6L, Free Thyroxine 1.06 Height (Feet): 5 Height (Inches): 5.00 Weight (Pounds): 100 Objective GENERAL: A well-developed male, frail overall. NAD wounds noted HEENT: Negative. Extraocular movements are grossly intact. NECK: Supple. Without jugular venous distention. LUNGS: Fairly clear and symmetric. CARDIAC: S1 and S2. Regular rate and rhythm. Borderline tachycardia without murmurs, rubs, gallops. ABDOMEN: Soft, nontender, nondistended. EXTREMITIES: No cyanosis, clubbing, or edema. NEUROLOGIC: Grossly nonfocal and weak. reviewed and edited Yahir Bray MD Jun 14, 2019 08:29
--- NOTE | 2019-06-14 08:50 | NUR ---
NURSE NOTES:WOUND CARE NOTES:Pt presented on admission with full thickness pressure injury L ischium with 100% slough (L)0.6cm x (W)1cm. Non-blanching erythema periwound. Full thickness pressure injury R ischium(L)0.4cm x (W)0.5cm . Base of wound moist and viable.Surrounding non-blanching erythema.Pt stated he spends most of day sitting in his chair at home because he was too weak to self transfer to his bed. Non-blanching erythema without induration sacrum. No other skin concerns noted. Tx.Plan: Cleanse wounds R and L ischium with Saline. Apply Therahoney. Apply Moisture Barrier periwound. Cover with Optifoam drsg.Change every 3 days and prn. Apply Moisture Barrier Paste to Sacrum. Cover with Optifoam drsg. Change every 3 days and prn. Apply Cavilon To bony prominences and cover with Optifoam drsgs as needed. Apply Cavilon Skin Barrier to both heels. Cover each heel with Optifoam drsg. Change every 7 days and prn. APM/ANNA Mattress overlay. Off-load heels with pillow
[2019-06-14] MEDS: Flonase Nasal Inhaler 16gm NASAL SCH (09:15)
[2019-06-14] MEDS: cefTRIAXone 1 GM in D5W 55 ML IVPB SCH ×2 (09:15→09:22)
[2019-06-14] MEDS: Ascorbic Acid 500mg tab ORAL SCH (09:16)
[2019-06-14] MEDS: Heparin 5000 units/ml inj SUBQ SCH ×2 (09:17→20:52)
--- NOTE | 2019-06-14 13:44 | NUR ---
*-* DISCHARGE PLANNING *-* PATIENT HAS BEEN REFERRED TO: [facility] P: [phone] F: [phone]
--- NOTE | 2019-06-14 15:02 | NUR ---
*-* INSURANCE *-* ALL CLINICALS AND REVIEWS HAVE BEEN FAXED TO: WILFR[facility] GERARDM:FRANKLIN SINGH# [id number] P: [phone] F: [phone]
--- NOTE | 2019-06-14 15:34 | NUR ---
SPEECH PATHOLOGY: BEDSIDE SWALLOW EVALUATION COMPLETED S/P CHART REVIEW AND INTERVIEW WITH YOHAN BRIGHT. PER PATIENT, HE WAS ON A REGULAR TEXTURE DIET AT HOME. DYSPHAGIA RISK FACTORS: DECREASED MENTATION (IMPAIRED SAFETY AWARENESS), GENERALIZED WEAKNESS, WEIGHT LOSS/CACHEXIA, LLL INFILTRATE SUSPICIOUS FOR ASPIRATION, HX OF SHORTNESS OF BREATH INITIAL IMPRESSION: PATIENT SEEN IN CONTEXT OF NOON MEAL. HE WAS FEEDING HIMSELF. HE STATED THAT HE HAS DENTURES BUT THAT THEY DO NO FIT SUFFICIENTLY FOR USE WITH MEALS. HE PROVIDED A GENERAL HISTORY INCLUDING THE POSSIBILITY OF BEING PLACED IN HOSPICE CARE. WITH P.O. TRIALS OF SOFT SOLIDS AND THIN LIQUIDS PATIENT APPEARED TO PRESENT WITH GROSSLY INTACT OROPHARYNGEAL PHASE OF SWALLOW. IF HE HAS A HX OF EATING WHILE SHORT OF BREATH, THIS COULD HAVE INCREASED HIS RISK OF ASPIRATION. DURING TODAYS MEAL, THE PATIENTS RESTING RESPIRATION RATE WAS WELL BELOW 25bpm. RECOMMENDATIONS: 1. SAFE TO CONTINUE CURRENT DIET 2. SET UP ASSIST WITH MEALS 3. PILLS TOLERATED 4. SUPPORTED LIVING ENVIRONMENT POST DISCHARGE 5. ST TO FOLLOW FOR ONGOING ASSESSMENT
--- NOTE | 2019-06-14 16:05 | Surgery Progress Note ---
Surgery Progress Note Subjective Symptoms: improved, pain absent, tolerating diet, voiding well, passing flatus Objective Last 24 Hour Vital Signs Date Time Temp Pulse Resp B/P (MAP) Pulse Ox O2 Delivery O2 Flow Rate FiO2 06/14/19 12:00 98.2 92 18 117/65 (82) 95 06/14/19 09:00 Room Air 06/14/19 08:00 97.4 90 18 113/57 (75) 95 06/14/19 05:01 98.7 74 18 129/74 (92) 97 06/14/19 04:00 97.8 74 18 127/74 (91) 97 06/14/19 00:15 97.4 79 18 127/78 (94) 97 06/13/19 21:04 Room Air 06/13/19 20:00 98.8 87 21 122/74 (90) 97 I&O Intake and Output 06/13/19 06/14/19 19:00 07:00 Intake Total 450 ml Balance 450 ml Other 450 ml Dressing: other Wound: other Drains: other Cardiovascular: RSR Respiratory: decreased breath sounds Abdomen: soft, present bowel sounds Extremities: no cyanosis, other Laboratory Tests Test 06/14/19 06:01 White Blood Count 5.6 K/UL (4.8-10.8) Red Blood Count 3.21 M/UL (4.70-6.10) L Hemoglobin 10.7 G/DL (14.2-18.0) L Hematocrit 29.9 % (42.0-52.0) L Mean Corpuscular Volume 93 FL (80-99) Mean Corpuscular Hemoglobin 33.2 PG (27.0-31.0) H Mean Corpuscular Hemoglobin Concent 35.6 G/DL (32.0-36.0) Red Cell Distribution Width 11.2 % (11.6-14.8) L Platelet Count 169 K/UL (150-450) Mean Platelet Volume 5.7 FL (6.5-10.1) L Neutrophils (%) (Auto) % (45.0-75.0) Lymphocytes (%) (Auto) % (20.0-45.0) Monocytes (%) (Auto) % (1.0-10.0) Eosinophils (%) (Auto) % (0.0-3.0) Basophils (%) (Auto) % (0.0-2.0) Neutrophils % (Manual) 90 % (45-75) H Lymphocytes % (Manual) 6 % (20-45) L Monocytes % (Manual) 4 % (1-10) Eosinophils % (Manual) 0 % (0-3) Basophils % (Manual) 0 % (0-2) Band Neutrophils 0 % (0-8) Platelet Estimate Adequate Platelet Morphology Normal Sodium Level 132 MMOL/L (136-145) L Potassium Level 4.0 MMOL/L (3.5-5.1) Chloride Level 97 MMOL/L (98-107) L Carbon Dioxide Level 34 MMOL/L (21-32) H Anion Gap 2 mmol/L (5-15) L Blood Urea Nitrogen 19 mg/dL (7-18) H Creatinine 0.8 MG/DL (0.55-1.30) Estimat Glomerular Filtration Rate mL/min (>60) Glucose Level 93 MG/DL (74-106) Calcium Level 8.4 MG/DL (8.5-10.1) L Total Bilirubin 0.4 MG/DL (0.2-1.0) Aspartate Amino Transf (AST/SGOT) 35 U/L (15-37) Alanine Aminotransferase (ALT/SGPT) 23 U/L (12-78) Alkaline Phosphatase 67 U/L (46-116) Total Protein 5.2 G/DL (6.4-8.2) L Albumin 2.0 G/DL (3.4-5.0) L Globulin 3.2 g/dL Albumin/Globulin Ratio 0.6 (1.0-2.7) L Free Thyroxine 1.06 NG/DL (0.76-1.46) Plan Problems: (1) Cachexia (2) Failure to thrive in adult Assessment & Plan: DAILY ESTIMATED NEEDS: Needs based on Underweight, wasting/ 45.5kg 30-40 kcals/kg 3742-3506 total kcals 1-2 g protein/kg 46-91 g total protein 25-30 mL/kg 9937-8889 total fluid mLs NUTRITION DIAGNOSIS: Malnutrition (severe), in the context of chronic illness R/T years of epigastric pain and gastric acid, abdominal discomfort causing poor oral intake, increased weakness, unable to care well for self, lack of help at home as evidenced by pt admitted w/ severe wasting @ BUE, clavicle area and temporalis, less than 75% of energy intakes compared to estimated needs for months, pt unable to quantify. CURRENT DIET:REGULAR, soft easy chew PO DIET RECOMMENDATIONS: REGULAR, BLAND/ texture as tolerated or per HOUSEKEEPER HOME ADDITIONAL RECOMMENDATIONS: * Calibrated bedscale wt, weekly wt monitoring given underweight status * Ensure Enlive TID w/ meals * GI consult for c/o epigastric pain/ gastric acid * Snacks BID in b/w meals as tolerated * Monitor lytes, replete as needed * Wound care: MVI x 1, Vit C 250mg QD as tolerated (3) Open wound (4) Abdominal pain Assessment & Plan: c/o abdominal discomfort ongoing for years but feels getting worse likely constipation PPI mom Nonobstructive but nonspecific bowel gas pattern. No free air. Bibasilar opacities. Degenerative changes of the hips and spine. US ordered will follow with jaqui (5) Open wound of thigh Assessment & Plan: patient identified on admission to have a left posterior prominal thigh open wound 2cm x 1cm x 1cm with 100% sloth and some barbie wound erythema. mild odor. no drainage. likely seems to have been prior small abscess or carbuncle that has opened up and not healed well also has sacral erythema stage 1 noted wash left thigh wound daily with NS, apply therahoney gauze and dressing daily may require debridement skin protectant for sacral area and optifoam dressing turn q2h off load pressure with pillows nutritional optimization will follow with Devyn Conde Jun 14, 2019 16:05
--- NOTE | 2019-06-14 18:30 | NUR ---
NURSE NOTES: patient complained that he was not able to breath and was "choking". Nurse performed 5x Heimlich maneuver. Patient vomited medium amount of grayish thick secretion. Nurse provided mouthwash and water to wash mouth, patient cleaned mouth self. He then said he was having SOB. nurse contacted RT to perform respiratory treatment. Notified EWA Campbell and dr. Shah.
--- NOTE | 2019-06-14 19:43 | NUR ---
NURSE NOTES: Received patient in bed, patient is awake, alert, highly anxious, very talkative, RN ensured patient is safe and comfortable, IV site is clean dry and intact, no acute distress noted, patient is able to verbalize his need, call light is within reach, bed is lowered, locked and alarm is on. Will continue to monitor for comfort and safety.
--- NOTE | 2019-06-14 20:05 | NUR ---
HAND-OFF: Report given to Kassidy ALMANZAR.
[2019-06-14] MEDS: Terazosin 1mg cap ORAL SCH (20:52)
--- NOTE | 2019-06-14 22:08 | NUR ---
NURSE NOTES: RN asked patient who is signing the consent for him and he said, himself. RN asked pt before giving him the consent. He's alert and oriented to name, date, location and purpose of this visit on time of handling him the paper. Patient wanted to read everything on the consent first and will sign it whenever he is comfortable to make the EGD happen. He was instructed to be NPO at midnight just in case. Pt knows the risks and benefits. He verbalized understanding.
--- NOTE | 2019-06-14 23:14 | General Progress Note ---
Assessment/Plan Assessment/Plan: Assessment - Anemia - weight loss - Failure to thrive Recommendation - follow labs - EGD in am Subjective Allergies: Coded Allergies: No Known Allergies (Unverified , 06/12/19) Subjective above noted seen this am d/w patient re anemia and weight loss advised concern re GI malignancy advised re recommendation for both EGD and colon adamantly refuses colonoscopy but did agree to EGD Objective Last 24 Hour Vital Signs Date Time Temp Pulse Resp B/P (MAP) Pulse Ox O2 Delivery O2 Flow Rate FiO2 06/14/19 21:00 Room Air 06/14/19 20:00 96.7 83 18 141/63 (89) 96 06/14/19 16:00 98.4 98 18 122/68 (86) 95 06/14/19 12:00 98.2 92 18 117/65 (82) 95 06/14/19 09:00 Room Air 06/14/19 08:00 97.4 90 18 113/57 (75) 95 06/14/19 05:01 98.7 74 18 129/74 (92) 97 06/14/19 04:00 97.8 74 18 127/74 (91) 97 06/14/19 00:15 97.4 79 18 127/78 (94) 97 Intake and Output 06/13/19 06/14/19 18:59 06:59 Intake Total 450 ml Balance 450 ml Other 450 ml Laboratory Tests 06/14/19 06:01: White Blood Count 5.6, Red Blood Count 3.21L, Hemoglobin 10.7L, Hematocrit 29.9L , Mean Corpuscular Volume 93, Mean Corpuscular Hemoglobin 33.2H, Mean Corpuscular Hemoglobin Concent 35.6, Red Cell Distribution Width 11.2L, Platelet Count 169, Mean Platelet Volume 5.7L, Neutrophils (%) (Auto) , Lymphocytes (%) (Auto) , Monocytes (%) (Auto) , Eosinophils (%) (Auto) , Basophils (%) (Auto) , Neutrophils % (Manual) 90H, Lymphocytes % (Manual) 6L, Monocytes % (Manual) 4, Eosinophils % (Manual) 0, Basophils % (Manual) 0, Band Neutrophils 0, Platelet Estimate Adequate, Platelet Morphology Normal, Sodium Level 132L, Potassium Level 4.0, Chloride Level 97L, Carbon Dioxide Level 34H, Anion Gap 2L, Blood Urea Nitrogen 19H, Creatinine 0.8, Estimat Glomerular Filtration Rate , Glucose Level 93, Calcium Level 8.4L, Total Bilirubin 0.4, Aspartate Amino Transf (AST/SGOT) 35, Alanine Aminotransferase (ALT/SGPT) 23, Alkaline Phosphatase 67, Total Protein 5.2L, Albumin 2.0L, Globulin 3.2, Albumin /Globulin Ratio 0.6L, Free Thyroxine 1.06 Height (Feet): 5 Height (Inches): 5.00 Weight (Pounds): 100 Objective Thin WM NCAT supple CTA RR abd soft ND NT no edema Garrett Jimenez MD Jun 14, 2019 23:14
--- NOTE | 2019-06-14 23:47 | NUR ---
NURSE NOTES: Patient signed the consent for the procedure earlier but he just barely called and strongly refused the procedure. And verbalized that is his final decision. He doesn't want it anymore. Witnessed by Charge nurse Virginia. Dr. Jimenez made aware.
[2019-06-15] VITALS: BP 127/66
[2019-06-15 04:00] VITALS: BP 112/55
--- NOTE | 2019-06-15 06:31 | NUR ---
NURSE NOTES: EWA Mars made aware that patient was asking for diet. Waiting for orders.
--- NOTE | 2019-06-15 07:27 | General Progress Note ---
Assessment/Plan Assessment/Plan: IMPRESSION: 1. Failure to thrive and disheveled 2. Protein-calorie malnutrition. 3. Mild hyponatremia. 4. Contraction alkalosis, likely mild leukopenia. 5. Anemia. 6. Possible cognitive dysfunction. 7. possible swallow dysfunction PLAN wound care dc today SNF placement today CM to assist impression, plan, and exam edited and reviewed in detail care discussed with RN Subjective Allergies: Coded Allergies: No Known Allergies (Unverified , 06/12/19) Subjective care noted same weak alert and oriented x3 agrees to rehab Objective Last 24 Hour Vital Signs Date Time Temp Pulse Resp B/P (MAP) Pulse Ox O2 Delivery O2 Flow Rate FiO2 06/15/19 04:00 97.0 77 18 112/55 (74) 94 06/15/19 00:00 97.0 104 20 127/66 (86) 96 06/14/19 21:00 Room Air 06/14/19 20:00 96.7 83 18 141/63 (89) 96 06/14/19 16:00 98.4 98 18 122/68 (86) 95 06/14/19 12:00 98.2 92 18 117/65 (82) 95 06/14/19 09:00 Room Air 06/14/19 08:00 97.4 90 18 113/57 (75) 95 Intake and Output 06/14/19 06/15/19 19:00 07:00 Intake Total 600 ml Output Total 400 ml Balance 200 ml Intake Oral 600 ml Output Urine Total 400 ml Height (Feet): 5 Height (Inches): 5.00 Weight (Pounds): 100 Objective GENERAL: A well-developed male, frail overall. NAD wounds noted HEENT: Negative. Extraocular movements are grossly intact. NECK: Supple. Without jugular venous distention. LUNGS: Fairly clear and symmetric. CARDIAC: S1 and S2. Regular rate and rhythm. Borderline tachycardia without murmurs, rubs, gallops. ABDOMEN: Soft, nontender, nondistended. EXTREMITIES: No cyanosis, clubbing, or edema. NEUROLOGIC: Grossly nonfocal and weak. reviewed and edited Yahir Bray MD Jun 15, 2019 07:27
--- NOTE | 2019-06-15 07:31 | NUR ---
HAND-OFF: Report given to YOHAN Quiñonez.
--- NOTE | 2019-06-15 07:40 | NUR ---
NURSE NOTES: Received patient on bed, awake. IV intact and patent. Bed in low and locked position, call light in reach. No signs of respiratory distress or pain. Room board updated, will continue to monitor.
[2019-06-15 08:13] VITALS: BP 115/69
[2019-06-15] MEDS: Flonase Nasal Inhaler 16gm NASAL SCH (09:09)
[2019-06-15] MEDS: cefTRIAXone 1 GM in D5W 55 ML IVPB SCH (09:09)
[2019-06-15] MEDS: Ascorbic Acid 500mg tab ORAL SCH (09:10)
[2019-06-15] MEDS: Heparin 5000 units/ml inj SUBQ SCH ×2 (09:11→20:40)
--- NOTE | 2019-06-15 09:21 | NUR ---
*-* DISCHARGE PLANNING *-* PATIENT HAS BEEN REFERRED TO: [facility] P; [phone] f: [phone]
--- NOTE | 2019-06-15 10:41 | NUR ---
NURSE NOTES: Patient is stating he wants to at home with hospice and does nto want to go to SNF as per MD order. Message left for MD Malin. Awaiting call back.
[2019-06-15 12:00] VITALS: BP 119/71
--- NOTE | 2019-06-15 12:19 | NUR ---
RD ASSESSMENT & RECOMMENDATIONS SEE CARE ACTIVITY FOR COMPLETE ASSESSMENT DAILY ESTIMATED NEEDS: Needs based on Underweight, wasting/ 45.5kg 30-40 kcals/kg 7054-2668 total kcals 1-2 g protein/kg 46-91 g total protein 25-30 mL/kg 1970-9410 total fluid mLs NUTRITION DIAGNOSIS: Malnutrition (severe), in the context of chronic illness R/T years of epigastric pain and gastric acid, abdominal discomfort causing poor oral intake, increased weakness, unable to care well for self, lack of help at home as evidenced by pt admitted w/ severe wasting @ BUE, clavicle area and temporalis, less than 75% of energy intakes compared to estimated needs for months, pt unable to quantify. CURRENT DIET:REGULAR, soft easy chew PO DIET RECOMMENDATIONS: REGULAR, BLAND/ texture as tolerated or per LAWN CARE PROFESSIONAL ADDITIONAL RECOMMENDATIONS: * Calibrated bedscale wt, weekly wt monitoring given underweight status * Ensure Enlive TID w/ meals * Snacks BID in b/w meals as tolerated * Monitor lytes, replete as needed * Wound care: MVI x 1, Vit C 250mg QD as tolerated rec CAREMN Fruit punch in 8oz H2O BID as tolerated
--- NOTE | 2019-06-15 14:21 | Surgery Progress Note ---
Surgery Progress Note Subjective Symptoms: improved, pain absent, tolerating diet, voiding well, passing flatus , BM Objective Last 24 Hour Vital Signs Date Time Temp Pulse Resp B/P (MAP) Pulse Ox O2 Delivery O2 Flow Rate FiO2 06/15/19 12:00 98.6 90 18 119/71 (87) 97 06/15/19 09:00 Room Air 06/15/19 08:20 75 16 96 Room Air 21 06/15/19 08:13 97.8 75 17 115/69 (84) 100 06/15/19 04:00 97.0 77 18 112/55 (74) 94 06/15/19 00:00 97.0 104 20 127/66 (86) 96 06/14/19 21:00 Room Air 06/14/19 20:00 96.7 83 18 141/63 (89) 96 06/14/19 16:00 98.4 98 18 122/68 (86) 95 I&O Intake and Output 06/14/19 06/15/19 19:00 07:00 Intake Total 600 ml Output Total 400 ml Balance 200 ml Intake Oral 600 ml Output Urine Total 400 ml Dressing: dry Wound: clean Cardiovascular: RSR Respiratory: clear Abdomen: soft, non-tender, present bowel sounds Extremities: no edema, no tenderness, no cyanosis Plan Problems: (1) Cachexia (2) Failure to thrive in adult Assessment & Plan: DAILY ESTIMATED NEEDS: Needs based on Underweight, wasting/ 45.5kg 30-40 kcals/kg 0350-9524 total kcals 1-2 g protein/kg 46-91 g total protein 25-30 mL/kg 2161-1634 total fluid mLs NUTRITION DIAGNOSIS: Malnutrition (severe), in the context of chronic illness R/T years of epigastric pain and gastric acid, abdominal discomfort causing poor oral intake, increased weakness, unable to care well for self, lack of help at home as evidenced by pt admitted w/ severe wasting @ BUE, clavicle area and temporalis, less than 75% of energy intakes compared to estimated needs for months, pt unable to quantify. CURRENT DIET:REGULAR, soft easy chew PO DIET RECOMMENDATIONS: REGULAR, BLAND/ texture as tolerated or per ENGRAVER SIGNATURE ADDITIONAL RECOMMENDATIONS: * Calibrated bedscale wt, weekly wt monitoring given underweight status * Ensure Enlive TID w/ meals * GI consult for c/o epigastric pain/ gastric acid * Snacks BID in b/w meals as tolerated * Monitor lytes, replete as needed * Wound care: MVI x 1, Vit C 250mg QD as tolerated (3) Open wound (4) Abdominal pain Assessment & Plan: c/o abdominal discomfort ongoing for years but feels getting worse likely constipation PPI mom Nonobstructive but nonspecific bowel gas pattern. No free air. Bibasilar opacities. Degenerative changes of the hips and spine. US ordered will follow with recs (5) Open wound of thigh Assessment & Plan: patient identified on admission to have a left posterior prominal thigh open wound 2cm x 1cm x 1cm with 100% sloth and some barbie wound erythema. mild odor. no drainage. likely seems to have been prior small abscess or carbuncle that has opened up and not healed well also has sacral erythema stage 1 noted wash left thigh wound daily with NS, apply therahoney gauze and dressing daily may require debridement skin protectant for sacral area and optifoam dressing turn q2h off load pressure with pillows nutritional optimization will follow with recs Additional Comments okay to d/c follow above care plan for d/c Devyn Mejia Jun 15, 2019 14:21
--- NOTE | 2019-06-15 15:48 | NUR ---
NURSE NOTES: Dressing changed.
[2019-06-15 16:00] VITALS: BP 120/82
--- NOTE | 2019-06-15 16:13 | NUR ---
NURSE NOTES: Patient had blood pressure medication at bedside. Medication taken to inpatient pharmacy. Charge nurse made aware.
--- NOTE | 2019-06-15 19:04 | General Progress Note ---
Assessment/Plan Assessment/Plan: Assessment - Anemia - weight loss - Failure to thrive - declines GI evaluation Recommendation - follow labs - push po - d/c planning Subjective Allergies: Coded Allergies: No Known Allergies (Unverified , 06/12/19) Subjective above noted patient changed his mind last night cancelled his consent to EGD not interested in any GI w/u understands may have cancer Objective Last 24 Hour Vital Signs Date Time Temp Pulse Resp B/P (MAP) Pulse Ox O2 Delivery O2 Flow Rate FiO2 06/15/19 16:00 98.3 84 17 120/82 (95) 97 06/15/19 15:47 Room Air 06/15/19 12:00 98.6 90 18 119/71 (87) 97 06/15/19 09:00 Room Air 06/15/19 08:20 75 16 96 Room Air 21 06/15/19 08:13 97.8 75 17 115/69 (84) 100 06/15/19 04:00 97.0 77 18 112/55 (74) 94 06/15/19 00:00 97.0 104 20 127/66 (86) 96 06/14/19 21:00 Room Air 06/14/19 20:00 96.7 83 18 141/63 (89) 96 Intake and Output 06/14/19 06/15/19 19:00 07:00 Intake Total 600 ml Output Total 400 ml Balance 200 ml Intake Oral 600 ml Output Urine Total 400 ml Height (Feet): 5 Height (Inches): 5.00 Weight (Pounds): 100 Objective Thin WM NCAT supple CTA RR abd soft ND NT no edema Garrett Jimenez MD Jun 15, 2019 19:04
--- NOTE | 2019-06-15 19:31 | NUR ---
HAND-OFF: Report given to YOHAN Soto.
--- NOTE | 2019-06-15 19:35 | NUR ---
NURSE NOTES: Pt. received laying in bed. AAOx4, pt. reports no pain at this time and no respiratory distress or SOB noted. IV site is intact and patent. Urinal and bedpan in reach per pt.'s request. Discussed will follow up with medications shortly. Bed low and locked, side rails up, and call light was provided and instructed for use.
[2019-06-15 20:00] VITALS: BP 117/75
[2019-06-15] MEDS: Terazosin 1mg cap ORAL SCH (20:37)
[2019-06-16] VITALS: BP 101/45
--- NOTE | 2019-06-16 03:40 | NUR ---
NURSE NOTES: Pt. sleeping in bed. No sign of pain or respiratory distress noted. Bed is low and locked, side rails are up, and call light is in reach.
[2019-06-16 04:00] VITALS: BP 112/59
--- NOTE | 2019-06-16 07:06 | NUR ---
HAND-OFF: Report given to YOHAN Quiñonez.
--- NOTE | 2019-06-16 07:40 | NUR ---
NURSE NOTES: Received patient on bed, awake. IV intact and patent. Dressings intact.Bed in low and locked position, call light in reach. No signs of respiratory distress or pain. ROom board updated, will continue to monitor.
[2019-06-16 08:00] VITALS: BP 113/68
[2019-06-16] MEDS: Ascorbic Acid 500mg tab ORAL SCH (09:22)
[2019-06-16] MEDS: cefTRIAXone 1 GM in D5W 55 ML IVPB SCH (09:22)
[2019-06-16] MEDS: Flonase Nasal Inhaler 16gm NASAL SCH (09:22)
[2019-06-16] MEDS: Heparin 5000 units/ml inj SUBQ SCH ×2 (09:23→20:36)
--- NOTE | 2019-06-16 11:33 | Pulmonology Progress Note ---
Assessment/Plan Assessment/Plan Pulmonary Progress Note Assessment/Plan: IMPRESSION: 1. Failure to thrive and disheveled 2. Protein-calorie malnutrition. 3. Mild hyponatremia. 4. Contraction alkalosis, likely mild leukopenia. 5. Anemia. 6. Possible cognitive dysfunction. 7. possible swallow dysfunction PLAN wound care dc today SNF placement CM to assist impression, plan, and exam edited and reviewed in detail care discussed with RN Subjective Allergies: Coded Allergies: No Known Allergies (Unverified , 06/12/19) Subjective care noted same weak alert and oriented x3 agrees to rehab Objective Vital Signs Noted Height (Feet): 5 Height (Inches): 5.00 Weight (Pounds): 100 Objective GENERAL: A well-developed male, frail overall. NAD wounds noted HEENT: Negative. Extraocular movements are grossly intact. NECK: Supple. Without jugular venous distention. LUNGS: Fairly clear and symmetric. CARDIAC: S1 and S2. Regular rate and rhythm. Borderline tachycardia without murmurs, rubs, gallops. ABDOMEN: Soft, nontender, nondistended. EXTREMITIES: No cyanosis, clubbing, or edema. NEUROLOGIC: Grossly nonfocal and weak. reviewed and edited Subjective ROS Limited/Unobtainable: No Allergies: Coded Allergies: No Known Allergies (Unverified , 06/12/19) Objective Last 24 Hour Vital Signs Date Time Temp Pulse Resp B/P (MAP) Pulse Ox O2 Delivery O2 Flow Rate FiO2 06/16/19 09:00 Room Air 06/16/19 08:00 98.2 78 19 113/68 (83) 99 06/16/19 04:00 97.1 79 16 112/59 (76) 96 06/16/19 00:00 97.8 100 18 101/45 (63) 94 06/15/19 21:00 Room Air 06/15/19 20:00 97.8 94 21 117/75 (89) 95 06/15/19 19:00 71 16 96 Room Air 21 06/15/19 16:00 98.3 84 17 120/82 (95) 97 06/15/19 15:47 Room Air 06/15/19 12:00 98.6 90 18 119/71 (87) 97 Intake and Output 06/15/19 06/16/19 19:00 07:00 Intake Total 4025 ml 7300 ml Output Total 400 ml 800 ml Balance 3625 ml 6500 ml Intake Oral 1020 ml 1400 ml IV Total 2555 ml 5000 ml Other 450 ml 900 ml Output Urine Total 400 ml 800 ml # Voids 5 6 # Bowel Movements 2 2 Current Medications Medications (Trade) Dose Ordered Sig/Daina Route PRN Reason Start Time Stop Time Status Last Admin Dose Admin Acetaminophen (Tylenol) 650 mg Q4H PRN ORAL Mild Pain/Temp > 100.5 06/12/19 06:45 07/12/19 06:44 Al Hydroxide/Mg Hydroxide (Mylanta) 30 ml FOUR TIMES A DAY PRN ORAL gas 06/12/19 06:45 07/12/19 06:44 Albuterol Sulfate (Proventil) 2.5 mg Q4H PRN HHN Shortness of Breath 06/12/19 06:45 06/17/19 06:44 Ascorbic Acid (Vitamin C) 250 mg DAILY ORAL 06/13/19 09:00 07/13/19 08:59 06/16/19 09:22 Ceftriaxone Sodium 1 gm/ Dextrose 55 ml @ 110 mls/hr Q24H IVPB 06/12/19 09:00 06/19/19 08:59 06/16/19 09:22 Fluticasone Propionate (Flonase) 1 spray DAILY NASAL 06/12/19 10:30 07/12/19 10:29 06/16/19 09:22 Gabapentin (Neurontin) 300 mg BID ORAL 06/12/19 09:00 07/12/19 08:59 06/16/19 09:22 Heparin Sodium (Porcine) (Heparin 5000 units/ml) 5,000 units EVERY 12 HOURS SUBQ 06/12/19 09:00 07/12/19 08:59 06/16/19 09:23 Multivitamins (Multivitamins) 1 tab DAILY ORAL 06/13/19 09:00 07/13/19 08:59 06/16/19 09:22 Pantoprazole (Protonix) 40 mg DAILY ORAL 06/12/19 09:00 07/12/19 08:59 06/16/19 09:22 Terazosin HCl (Hytrin) 2 mg BEDTIME ORAL 06/12/19 21:00 07/12/19 20:59 06/15/19 20:37 Khang Bolton MD Jun 16, 2019 11:33
[2019-06-16 12:00] VITALS: BP 110/60
[2019-06-16 16:00] VITALS: BP 110/69
--- NOTE | 2019-06-16 17:54 | NUR ---
ANIMAL IMPERSONATOR NOTES PT ACCEPTED TO [facility] WAITING FOR AUTH FROM INSURANCE COMPANY.
--- NOTE | 2019-06-16 18:34 | Surgery Progress Note ---
Surgery Progress Note Subjective Symptoms: improved, pain absent, tolerating diet, voiding well, passing flatus , BM Objective Last 24 Hour Vital Signs Date Time Temp Pulse Resp B/P (MAP) Pulse Ox O2 Delivery O2 Flow Rate FiO2 06/16/19 16:00 98.6 86 17 110/69 (83) 97 06/16/19 12:00 98.2 70 18 110/60 (77) 98 06/16/19 09:00 Room Air 06/16/19 08:00 98.2 78 19 113/68 (83) 99 06/16/19 04:00 97.1 79 16 112/59 (76) 96 06/16/19 00:00 97.8 100 18 101/45 (63) 94 06/15/19 21:00 Room Air 06/15/19 20:00 97.8 94 21 117/75 (89) 95 06/15/19 19:00 71 16 96 Room Air 21 I&O Intake and Output 06/15/19 06/16/19 19:00 07:00 Intake Total 4025 ml 7300 ml Output Total 400 ml 800 ml Balance 3625 ml 6500 ml Intake Oral 1020 ml 1400 ml IV Total 2555 ml 5000 ml Other 450 ml 900 ml Output Urine Total 400 ml 800 ml # Voids 5 6 # Bowel Movements 2 2 Drains: none Cardiovascular: RSR Respiratory: clear Abdomen: soft, flat, non-tender, present bowel sounds Extremities: no edema, no tenderness, no cyanosis Plan Problems: (1) Cachexia (2) Failure to thrive in adult Assessment & Plan: DAILY ESTIMATED NEEDS: Needs based on Underweight, wasting/ 45.5kg 30-40 kcals/kg 6291-6116 total kcals 1-2 g protein/kg 46-91 g total protein 25-30 mL/kg 9458-4285 total fluid mLs NUTRITION DIAGNOSIS: Malnutrition (severe), in the context of chronic illness R/T years of epigastric pain and gastric acid, abdominal discomfort causing poor oral intake, increased weakness, unable to care well for self, lack of help at home as evidenced by pt admitted w/ severe wasting @ BUE, clavicle area and temporalis, less than 75% of energy intakes compared to estimated needs for months, pt unable to quantify. CURRENT DIET:REGULAR, soft easy chew PO DIET RECOMMENDATIONS: REGULAR, BLAND/ texture as tolerated or per SENIOR CREDIT OFFICER ADDITIONAL RECOMMENDATIONS: * Calibrated bedscale wt, weekly wt monitoring given underweight status * Ensure Enlive TID w/ meals * GI consult for c/o epigastric pain/ gastric acid * Snacks BID in b/w meals as tolerated * Monitor lytes, replete as needed * Wound care: MVI x 1, Vit C 250mg QD as tolerated (3) Open wound (4) Abdominal pain Assessment & Plan: c/o abdominal discomfort ongoing for years but feels getting worse likely constipation PPI mom Nonobstructive but nonspecific bowel gas pattern. No free air. Bibasilar opacities. Degenerative changes of the hips and spine. US ordered will follow with recs (5) Open wound of thigh Assessment & Plan: patient identified on admission to have a left posterior prominal thigh open wound 2cm x 1cm x 1cm with 100% sloth and some barbie wound erythema. mild odor. no drainage. likely seems to have been prior small abscess or carbuncle that has opened up and not healed well also has sacral erythema stage 1 noted wash left thigh wound daily with NS, apply therahoney gauze and dressing daily may require debridement skin protectant for sacral area and optifoam dressing turn q2h off load pressure with pillows nutritional optimization will follow with recDevyn Montilla Jun 16, 2019 18:34
--- NOTE | 2019-06-16 19:20 | NUR ---
NURSE NOTES: Receive pt from YOHAN Quiñonez. AAO x 4, on room air. IV intact and patent. No resp. distress noted at this time. Dressings intact and dry. Bed locked, lowest position, alarm on, side rails up, call light within reach. Will continue to monitor.
--- NOTE | 2019-06-16 19:36 | NUR ---
NURSE NOTES: Dressings changed.
--- NOTE | 2019-06-16 19:37 | NUR ---
HAND-OFF: Report given to YOHAN Canas.
[2019-06-16 20:00] VITALS: BP 125/60
[2019-06-16] MEDS: Terazosin 1mg cap ORAL SCH (20:38)
[2019-06-16] MEDS: Zolpidem 5mg tab ORAL PRN (21:54)
--- NOTE | 2019-06-16 23:09 | General Progress Note ---
Assessment/Plan Assessment/Plan: Assessment - Anemia - weight loss - Failure to thrive - declines GI evaluation Recommendation - follow labs - push po - d/c planning Subjective Allergies: Coded Allergies: No Known Allergies (Unverified , 06/12/19) Subjective above noted no new complaints Objective Last 24 Hour Vital Signs Date Time Temp Pulse Resp B/P (MAP) Pulse Ox O2 Delivery O2 Flow Rate FiO2 06/16/19 21:00 Room Air 06/16/19 20:00 97.3 86 20 125/60 (81) 96 06/16/19 16:00 98.6 86 17 110/69 (83) 97 06/16/19 12:00 98.2 70 18 110/60 (77) 98 06/16/19 09:00 Room Air 06/16/19 08:00 98.2 78 19 113/68 (83) 99 06/16/19 04:00 97.1 79 16 112/59 (76) 96 06/16/19 00:00 97.8 100 18 101/45 (63) 94 Intake and Output 06/15/19 06/16/19 19:00 07:00 Intake Total 4025 ml 7300 ml Output Total 400 ml 800 ml Balance 3625 ml 6500 ml Intake Oral 1020 ml 1400 ml IV Total 2555 ml 5000 ml Other 450 ml 900 ml Output Urine Total 400 ml 800 ml # Voids 5 6 # Bowel Movements 2 2 Height (Feet): 5 Height (Inches): 5.00 Weight (Pounds): 98 Objective Thin WM NCAT supple CTA RR abd soft ND NT no edema Garrett Jimenez MD Jun 16, 2019 23:09
[2019-06-17] VITALS: BP 107/58
[2019-06-17 04:00] VITALS: BP 129/58
--- NOTE | 2019-06-17 07:04 | NUR ---
HAND-OFF: Report given to YOHAN Redmond.
--- NOTE | 2019-06-17 07:25 | NUR ---
NURSE NOTES: pt awake, A/O x 4, calm, cooperative. pain 08/09, abd, refused pain meds, call light within reach Addendum: 06/17/19 at 0811 by Nyla Bobby RN bed alarm on, bed in low position, fall precaution maintained. will continue to monitor.
[2019-06-17 08:00] VITALS: BP 128/59
[2019-06-17] MEDS: Flonase Nasal Inhaler 16gm NASAL SCH (09:00)
[2019-06-17] MEDS: Heparin 5000 units/ml inj SUBQ SCH ×2 (09:00→20:43)
[2019-06-17] MEDS: Ascorbic Acid 500mg tab ORAL SCH (09:26)
[2019-06-17] MEDS: cefTRIAXone 1 GM in D5W 55 ML IVPB SCH (09:26)
[2019-06-17 12:00] VITALS: BP 147/82
--- NOTE | 2019-06-17 13:02 | NUR ---
RD ASSESSMENT & RECOMMENDATIONS SEE CARE ACTIVITY FOR COMPLETE ASSESSMENT DAILY ESTIMATED NEEDS: Needs based on Underweight, wasting/ 45.5kg 30-40 kcals/kg 9932-9081 total kcals 1-2 g protein/kg 46-91 g total protein 25-30 mL/kg 5338-9567 total fluid mLs NUTRITION DIAGNOSIS: Malnutrition (severe), in the context of chronic illness R/T years of epigastric pain and gastric acid, abdominal discomfort causing poor oral intake, increased weakness, unable to care well for self, lack of help at home as evidenced by pt admitted w/ severe wasting @ BUE, clavicle area and temporalis, less than 75% of energy intakes compared to estimated needs for months, pt unable to quantify. PO DIET RECOMMENDATIONS: REGULAR, BLAND/ texture as tolerated or per PIT SHOVELER ADDITIONAL RECOMMENDATIONS: * Calibrated bedscale wt, weekly wt monitoring given underweight status * Ensure Enlive TID w/ meals * Snacks BID in b/w meals as tolerated * Monitor lytes, replete as needed- labs not updated * Wound care: MVI x 1, Vit C 250mg QD as tolerated rec CARMEN Fruit punch in 8oz H2O BID as tolerated
--- NOTE | 2019-06-17 13:58 | NUR ---
DECATOR OPERATOR NOTES INQUIRY FAXED TO [facility] 1999 . WILL FOLLOW UP WITH ACCEPTANCE.
--- NOTE | 2019-06-17 15:08 | Surgery Progress Note ---
Surgery Progress Note Subjective Symptoms: improved, tolerating diet, voiding well, passing flatus, BM Objective Last 24 Hour Vital Signs Date Time Temp Pulse Resp B/P (MAP) Pulse Ox O2 Delivery O2 Flow Rate FiO2 06/17/19 12:00 97.1 79 18 147/82 (103) 95 06/17/19 09:00 Room Air 06/17/19 08:20 79 22 92 Room Air 21 06/17/19 08:00 97.7 82 18 128/59 (82) 95 06/17/19 04:00 97.7 79 20 129/58 (81) 95 06/17/19 00:00 97.0 84 20 107/58 (74) 98 06/16/19 21:00 Room Air 06/16/19 20:00 97.3 86 20 125/60 (81) 96 06/16/19 16:00 98.6 86 17 110/69 (83) 97 I&O Intake and Output 06/16/19 06/17/19 19:00 07:00 Intake Total 655 ml Output Total 400 ml Balance 655 ml -400 ml Intake Oral 600 ml IV Total 55 ml Output Urine Total 400 ml # Voids 4 Dressing: other Wound: other Drains: other Cardiovascular: RSR Respiratory: clear Abdomen: soft, non-tender, present bowel sounds Extremities: no tenderness, no cyanosis Plan Problems: (1) Cachexia (2) Failure to thrive in adult Assessment & Plan: DAILY ESTIMATED NEEDS: Needs based on Underweight, wasting/ 45.5kg 30-40 kcals/kg 6869-2809 total kcals 1-2 g protein/kg 46-91 g total protein 25-30 mL/kg 0998-7212 total fluid mLs NUTRITION DIAGNOSIS: Malnutrition (severe), in the context of chronic illness R/T years of epigastric pain and gastric acid, abdominal discomfort causing poor oral intake, increased weakness, unable to care well for self, lack of help at home as evidenced by pt admitted w/ severe wasting @ BUE, clavicle area and temporalis, less than 75% of energy intakes compared to estimated needs for months, pt unable to quantify. CURRENT DIET:REGULAR, soft easy chew PO DIET RECOMMENDATIONS: REGULAR, BLAND/ texture as tolerated or per TECHNOLOG[employer] SOLUTIONS ARCHITECT ADDITIONAL RECOMMENDATIONS: * Calibrated bedscale wt, weekly wt monitoring given underweight status * Ensure Enlive TID w/ meals * GI consult for c/o epigastric pain/ gastric acid * Snacks BID in b/w meals as tolerated * Monitor lytes, replete as needed * Wound care: MVI x 1, Vit C 250mg QD as tolerated (3) Open wound (4) Abdominal pain Assessment & Plan: c/o abdominal discomfort ongoing for years but feels getting worse likely constipation PPI mom Nonobstructive but nonspecific bowel gas pattern. No free air. Bibasilar opacities. Degenerative changes of the hips and spine. will follow with recs d/c planning push po diet supplementation (5) Open wound of thigh Assessment & Plan: patient identified on admission to have a left posterior prominal thigh open wound 2cm x 1cm x 1cm with 100% sloth and some barbie wound erythema. mild odor. no drainage. likely seems to have been prior small abscess or carbuncle that has opened up and not healed well also has sacral erythema stage 1 noted wash left thigh wound daily with NS, apply therahoney gauze and dressing daily may require debridement skin protectant for sacral area and optifoam dressing turn q2h off load pressure with pillows nutritional optimization will follow with Devyn Conde Jun 17, 2019 15:08
[2019-06-17 16:00] VITALS: BP 122/59
--- NOTE | 2019-06-17 16:35 | NUR ---
DISCHARGE PLANNING Discharge order noted Patient has been referred to: [facility] [phone] [facility] [place] [phone] [facility] [phone] [facility] [phone] [place] [phone] Await Acceptance
--- NOTE | 2019-06-17 18:10 | Pulmonology Progress Note ---
Assessment/Plan Assessment/Plan Pulmonary Progress Note Assessment/Plan: IMPRESSION: 1. Failure to thrive 2. Protein-calorie malnutrition. 3. Mild hyponatremia. 4. Contraction alkalosis, likely mild leukopenia. 5. Anemia. 6. Possible cognitive dysfunction. 7. possible swallow dysfunction PLAN wound care SNF placement CM to assist impression, plan, and exam edited and reviewed in detail care discussed with RN Subjective Allergies: Coded Allergies: No Known Allergies (Unverified , 06/12/19) Subjective care noted same weak alert and oriented x3 agrees to rehab Objective Vital Signs Noted Height (Feet): 5 Height (Inches): 5.00 Weight (Pounds): 100 Objective GENERAL: A well-developed male, frail overall. NAD wounds noted HEENT: Negative. Extraocular movements are grossly intact. NECK: Supple. Without jugular venous distention. LUNGS: Fairly clear and symmetric. CARDIAC: S1 and S2. Regular rate and rhythm. Borderline tachycardia without murmurs, rubs, gallops. ABDOMEN: Soft, nontender, nondistended. EXTREMITIES: No cyanosis, clubbing, or edema. NEUROLOGIC: Grossly nonfocal and weak. reviewed and edited Subjective ROS Limited/Unobtainable: No Allergies: Coded Allergies: No Known Allergies (Unverified , 06/12/19) Objective Last 24 Hour Vital Signs Date Time Temp Pulse Resp B/P (MAP) Pulse Ox O2 Delivery O2 Flow Rate FiO2 06/17/19 16:00 97.6 84 18 122/59 (80) 96 06/17/19 12:00 97.1 79 18 147/82 (103) 95 06/17/19 09:00 Room Air 06/17/19 08:20 79 22 92 Room Air 21 06/17/19 08:00 97.7 82 18 128/59 (82) 95 06/17/19 04:00 97.7 79 20 129/58 (81) 95 06/17/19 00:00 97.0 84 20 107/58 (74) 98 06/16/19 21:00 Room Air 06/16/19 20:00 97.3 86 20 125/60 (81) 96 Intake and Output 06/16/19 06/17/19 19:00 07:00 Intake Total 655 ml Output Total 400 ml Balance 655 ml -400 ml Intake Oral 600 ml IV Total 55 ml Output Urine Total 400 ml # Voids 4 Current Medications Medications (Trade) Dose Ordered Sig/Daina Route PRN Reason Start Time Stop Time Status Last Admin Dose Admin Acetaminophen (Tylenol) 650 mg Q4H PRN ORAL Mild Pain/Temp > 100.5 06/12/19 06:45 07/12/19 06:44 Al Hydroxide/Mg Hydroxide (Mylanta) 30 ml FOUR TIMES A DAY PRN ORAL gas 06/12/19 06:45 07/12/19 06:44 Ascorbic Acid (Vitamin C) 250 mg DAILY ORAL 06/13/19 09:00 07/13/19 08:59 06/17/19 09:26 Ceftriaxone Sodium 1 gm/ Dextrose 55 ml @ 110 mls/hr Q24H IVPB 06/12/19 09:00 06/19/19 08:59 06/17/19 09:26 Fluticasone Propionate (Flonase) 1 spray DAILY NASAL 06/12/19 10:30 07/12/19 10:29 06/17/19 09:00 Gabapentin (Neurontin) 300 mg BID ORAL 06/12/19 09:00 07/12/19 08:59 06/17/19 17:10 Heparin Sodium (Porcine) (Heparin 5000 units/ml) 5,000 units EVERY 12 HOURS SUBQ 06/12/19 09:00 07/12/19 08:59 06/16/19 20:36 Multivitamins (Multivitamins) 1 tab DAILY ORAL 06/13/19 09:00 07/13/19 08:59 06/17/19 09:25 Pantoprazole (Protonix) 40 mg DAILY ORAL 06/12/19 09:00 07/12/19 08:59 06/17/19 09:26 Terazosin HCl (Hytrin) 2 mg BEDTIME ORAL 06/12/19 21:00 07/12/19 20:59 06/16/19 20:38 Zolpidem Tartrate (Ambien) 5 mg HSPRN PRN ORAL Insomnia 06/16/19 21:47 06/23/19 21:46 06/16/19 21:54 Khang Bolton MD Jun 17, 2019 18:10
--- NOTE | 2019-06-17 19:15 | NUR ---
NURSE NOTES: Received pt from YOHAN Redmond. AAO x 4, on room air. No acute respiratory distress noted at this time. Fall precaution maintained. No c/o pain. Dressings intact and regino. Bed locked, lowest position, alarm on, side rails up, call light within reach. Will continue to monitor.
[2019-06-17 20:00] VITALS: BP 139/75
[2019-06-17] MEDS: Terazosin 1mg cap ORAL SCH ×2 (20:42→20:44)
--- NOTE | 2019-06-17 23:15 | General Progress Note ---
Assessment/Plan Assessment/Plan: Assessment - Anemia - weight loss - Failure to thrive - declines GI evaluation Recommendation - follow labs - push po - d/c planning Subjective Allergies: Coded Allergies: No Known Allergies (Unverified , 06/12/19) Subjective above noted no new complaints Objective Last 24 Hour Vital Signs Date Time Temp Pulse Resp B/P (MAP) Pulse Ox O2 Delivery O2 Flow Rate FiO2 06/17/19 21:00 Room Air 06/17/19 20:00 97.9 85 20 139/75 (96) 94 06/17/19 16:00 97.6 84 18 122/59 (80) 96 06/17/19 12:00 97.1 79 18 147/82 (103) 95 06/17/19 09:00 Room Air 06/17/19 08:20 79 22 92 Room Air 21 06/17/19 08:00 97.7 82 18 128/59 (82) 95 06/17/19 04:00 97.7 79 20 129/58 (81) 95 06/17/19 00:00 97.0 84 20 107/58 (74) 98 Intake and Output 06/16/19 06/17/19 19:00 07:00 Intake Total 655 ml Output Total 400 ml Balance 655 ml -400 ml Intake Oral 600 ml IV Total 55 ml Output Urine Total 400 ml # Voids 4 Height (Feet): 5 Height (Inches): 5.00 Weight (Pounds): 98 Objective Thin WM NCAT supple CTA RR abd soft ND NT no edema Garrett Jimenez MD Jun 17, 2019 23:15
[2019-06-17] MEDS: Zolpidem 5mg tab ORAL PRN (23:43)
[2019-06-18] VITALS: BP 133/81
[2019-06-18 04:00] VITALS: BP 150/81
--- NOTE | 2019-06-18 07:00 | NUR ---
HAND-OFF: Report given to YOHAN Patricia.
--- NOTE | 2019-06-18 07:00 | NUR ---
NURSE NOTES: Received patient on bed awake. No SOB or acute distress. IV line intact, no s/s of infiltration. HOB elevated. Bed locked in lowest position. Call light within reach. Will continue plan of care.
[2019-06-18 08:00] VITALS: BP 133/67
[2019-06-18] MEDS: cefTRIAXone 1 GM in D5W 55 ML IVPB SCH (08:14)
[2019-06-18] MEDS: Flonase Nasal Inhaler 16gm NASAL SCH (08:14)
[2019-06-18] MEDS: Ascorbic Acid 500mg tab ORAL SCH (08:14)
[2019-06-18] MEDS: Heparin 5000 units/ml inj SUBQ SCH ×2 (08:16→20:22)
--- NOTE | 2019-06-18 08:59 | General Progress Note ---
Assessment/Plan Assessment/Plan: Assessment - Anemia - weight loss - Failure to thrive - declines GI evaluation Recommendation - follow labs - push po - d/c planning Subjective Allergies: Coded Allergies: No Known Allergies (Unverified , 06/12/19) Subjective above noted no new complaints d/w RN unable to care for himself Objective Last 24 Hour Vital Signs Date Time Temp Pulse Resp B/P (MAP) Pulse Ox O2 Delivery O2 Flow Rate FiO2 06/18/19 07:41 74 18 96 Room Air 21 06/18/19 04:00 98.0 91 21 150/81 (104) 95 06/18/19 00:00 98.5 81 21 133/81 (98) 97 06/17/19 21:00 Room Air 06/17/19 20:00 97.9 85 20 139/75 (96) 94 06/17/19 19:42 78 20 95 Room Air 21 06/17/19 16:00 97.6 84 18 122/59 (80) 96 06/17/19 12:00 97.1 79 18 147/82 (103) 95 06/17/19 09:00 Room Air Intake and Output 06/17/19 06/18/19 19:00 07:00 Intake Total 720 ml Balance 720 ml Intake Oral 720 ml # Voids 2 1 # Bowel Movements 1 1 Height (Feet): 5 Height (Inches): 5.00 Weight (Pounds): 98 Objective Thin WM NCAT supple CTA RR abd soft ND NT no edema Garrett Jimenez MD Jun 18, 2019 08:59
[2019-06-18 12:00] VITALS: BP 120/62
--- NOTE | 2019-06-18 12:51 | NUR ---
NURSE NOTES: Patient complaining of sharp epigastric pain. notified, with orders for Mylanta 30cc q4 PRN. Patient also requesting for hospice care, MD made aware.
--- NOTE | 2019-06-18 13:05 | NUR ---
NURSE NOTES: Patient wants to be DNR/DNI according to bilingual patient support caseworker, MD made aware. Awaiting response.
--- NOTE | 2019-06-18 14:12 | NUR ---
SS note This SW received a consult to assist with a home safety evaluation assessment. This SW met with patient who recognizes that he cannot care for himself upon discharge, requesting Hospice (DNR/DNI). This SW explained SNF placement, while patient is in agreement with permanent placement, as needed. This sW also spoke with friend/neighbor Tere (who is not his POA), who also confirmed that patient is not safe to return home and will need SNF placement. Patient lives alone in a apartment (using an elevator), while his brother has and his sister is now living in an assisted living [facility]. Friend explains they would like for patient to be placed there, but they are full and patient will need skilled level of care upon discharge. Nursing, Belem informed regarding DNR/DNI requested by patient, along with Hospice.
--- NOTE | 2019-06-18 14:16 | NUR ---
NURSE NOTES: Left message for hospice case manager regarding hospice care. Awaiting callback.
--- NOTE | 2019-06-18 14:30 | NUR ---
NURSE NOTES: MD responded to RN's message of patient's wishes to be DNR/DNI. MD also recommended [facility] for hospice care.
[2019-06-18 16:00] VITALS: BP 126/68
--- NOTE | 2019-06-18 19:19 | NUR ---
HAND-OFF: Report given to
--- NOTE | 2019-06-18 19:28 | NUR ---
NURSE NOTES: Received patient in bed. A/O x4. Patient denies pain at this time. On room air. No respiratory distress. 1/2 upper bed rails up. Patient is able to turn himself in the bed with one person assist. Iv in Right forearm noted with no redness or swelling.
[2019-06-18 20:00] VITALS: BP 139/70
[2019-06-18] MEDS: Terazosin 1mg cap ORAL SCH (20:24)
--- NOTE | 2019-06-18 20:25 | NUR ---
Terazosin medication packaging opened and patient changed his mind. Will waste in the pyxis.
--- NOTE | 2019-06-18 21:14 | Pulmonology Progress Note ---
Assessment/Plan Assessment/Plan Pulmonary Progress Note Assessment/Plan: IMPRESSION: 1. Failure to thrive 2. Protein-calorie malnutrition. 3. Mild hyponatremia. 4. Contraction alkalosis, likely mild leukopenia. 5. Anemia. 6. Possible cognitive dysfunction. 7. possible swallow dysfunction PLAN wound care SNF placement CM to assist impression, plan, and exam edited and reviewed in detail care discussed with RN Subjective Allergies: Coded Allergies: No Known Allergies (Unverified , 06/12/19) Subjective care noted same weak alert and oriented x3 DC planning SNF Objective Vital Signs Noted Height (Feet): 5 Height (Inches): 5.00 Weight (Pounds): 100 Objective GENERAL: A well-developed male, frail overall. NAD wounds noted HEENT: Negative. Extraocular movements are grossly intact. NECK: Supple. Without jugular venous distention. LUNGS: Fairly clear and symmetric. CARDIAC: S1 and S2. Regular rate and rhythm. Borderline tachycardia without murmurs, rubs, gallops. ABDOMEN: Soft, nontender, nondistended. EXTREMITIES: No cyanosis, clubbing, or edema. NEUROLOGIC: Grossly nonfocal and weak. reviewed and edited Subjective ROS Limited/Unobtainable: No Allergies: Coded Allergies: No Known Allergies (Unverified , 06/12/19) Objective Last 24 Hour Vital Signs Date Time Temp Pulse Resp B/P (MAP) Pulse Ox O2 Delivery O2 Flow Rate FiO2 06/18/19 16:00 97.7 77 17 126/68 (87) 97 06/18/19 12:00 97.9 77 19 120/62 (81) 96 06/18/19 09:00 Room Air 06/18/19 08:00 98.1 93 19 133/67 (89) 96 06/18/19 07:41 74 18 96 Room Air 21 06/18/19 04:00 98.0 91 21 150/81 (104) 95 06/18/19 00:00 98.5 81 21 133/81 (98) 97 Intake and Output 06/17/19 06/18/19 19:00 07:00 Intake Total 720 ml Balance 720 ml Intake Oral 720 ml # Voids 2 1 # Bowel Movements 1 1 Current Medications Medications (Trade) Dose Ordered Sig/Daina Route PRN Reason Start Time Stop Time Status Last Admin Dose Admin Acetaminophen (Tylenol) 650 mg Q4H PRN ORAL Mild Pain/Temp > 100.5 06/12/19 06:45 07/12/19 06:44 Al Hydroxide/Mg Hydroxide (Mylanta) 30 ml Q4H PRN ORAL EPIGASTRIC PAIN 06/18/19 12:45 07/18/19 12:44 06/18/19 12:57 Ascorbic Acid (Vitamin C) 250 mg DAILY ORAL 06/13/19 09:00 07/13/19 08:59 06/18/19 08:14 Ceftriaxone Sodium 1 gm/ Dextrose 55 ml @ 110 mls/hr Q24H IVPB 06/12/19 09:00 06/19/19 08:59 06/18/19 08:14 Fluticasone Propionate (Flonase) 1 spray DAILY NASAL 06/12/19 10:30 07/12/19 10:29 06/18/19 08:14 Gabapentin (Neurontin) 300 mg BID ORAL 06/12/19 09:00 07/12/19 08:59 06/18/19 17:10 Heparin Sodium (Porcine) (Heparin 5000 units/ml) 5,000 units EVERY 12 HOURS SUBQ 06/12/19 09:00 07/12/19 08:59 06/18/19 20:22 Multivitamins (Multivitamins) 1 tab DAILY ORAL 06/13/19 09:00 07/13/19 08:59 06/18/19 08:13 Pantoprazole (Protonix) 40 mg DAILY ORAL 06/12/19 09:00 07/12/19 08:59 06/18/19 08:13 Terazosin HCl (Hytrin) 2 mg BEDTIME ORAL 06/12/19 21:00 07/12/19 20:59 06/16/19 20:38 Zolpidem Tartrate (Ambien) 5 mg HSPRN PRN ORAL Insomnia 06/16/19 21:47 06/23/19 21:46 06/17/19 23:43 Khang Bolton MD Jun 18, 2019 21:14
--- NOTE | 2019-06-18 21:49 | Surgery Progress Note ---
Surgery Progress Note Subjective Additional Comments no acute events comfortable stable tolerating diet Objective Last 24 Hour Vital Signs Date Time Temp Pulse Resp B/P (MAP) Pulse Ox O2 Delivery O2 Flow Rate FiO2 06/18/19 16:00 97.7 77 17 126/68 (87) 97 06/18/19 12:00 97.9 77 19 120/62 (81) 96 06/18/19 09:00 Room Air 06/18/19 08:00 98.1 93 19 133/67 (89) 96 06/18/19 07:41 74 18 96 Room Air 21 06/18/19 04:00 98.0 91 21 150/81 (104) 95 06/18/19 00:00 98.5 81 21 133/81 (98) 97 I&O Intake and Output 06/17/19 06/18/19 19:00 07:00 Intake Total 720 ml Balance 720 ml Intake Oral 720 ml # Voids 2 1 # Bowel Movements 1 1 Dressing: dry Wound: clean Cardiovascular: RSR Respiratory: clear Abdomen: soft, non-tender, present bowel sounds Extremities: no edema, no tenderness, no cyanosis Plan Problems: (1) Cachexia (2) Failure to thrive in adult Assessment & Plan: DAILY ESTIMATED NEEDS: Needs based on Underweight, wasting/ 45.5kg 30-40 kcals/kg 2947-6877 total kcals 1-2 g protein/kg 46-91 g total protein 25-30 mL/kg 9974-5860 total fluid mLs NUTRITION DIAGNOSIS: Malnutrition (severe), in the context of chronic illness R/T years of epigastric pain and gastric acid, abdominal discomfort causing poor oral intake, increased weakness, unable to care well for self, lack of help at home as evidenced by pt admitted w/ severe wasting @ BUE, clavicle area and temporalis, less than 75% of energy intakes compared to estimated needs for months, pt unable to quantify. CURRENT DIET:REGULAR, soft easy chew PO DIET RECOMMENDATIONS: REGULAR, BLAND/ texture as tolerated or per [employer]UCATION TUTOR ADDITIONAL RECOMMENDATIONS: * Calibrated bedscale wt, weekly wt monitoring given underweight status * Ensure Enlive TID w/ meals * GI consult for c/o epigastric pain/ gastric acid * Snacks BID in b/w meals as tolerated * Monitor lytes, replete as needed * Wound care: MVI x 1, Vit C 250mg QD as tolerated (3) Open wound (4) Abdominal pain Assessment & Plan: c/o abdominal discomfort ongoing for years but feels getting worse likely constipation PPI mom Nonobstructive but nonspecific bowel gas pattern. No free air. Bibasilar opacities. Degenerative changes of the hips and spine. will follow with recs d/c planning push po diet supplementation (5) Open wound of thigh Assessment & Plan: patient identified on admission to have a left posterior prominal thigh open wound 2cm x 1cm x 1cm with 100% sloth and some barbie wound erythema. mild odor. no drainage. likely seems to have been prior small abscess or carbuncle that has opened up and not healed well also has sacral erythema stage 1 noted wash left thigh wound daily with NS, apply therahoney gauze and dressing daily may require debridement skin protectant for sacral area and optifoam dressing turn q2h off load pressure with pillows nutritional optimization will follow with Devyn Conde Jun 18, 2019 21:49
--- NOTE | 2019-06-18 23:30 | NUR ---
NURSE NOTES: Wound change done for bilateral ishcial and sacrum, and optifoam applied to bilateral hips for ppx. NS and cavilon with optifoam applied to bilateral elbows. NS and triad with optifoam applied to right scapula.
--- NOTE | 2019-06-18 23:35 | NUR ---
NURSE NOTES: Patient noted with bilateral Elbow redness and right upper scapula stage 2. Pictures taken. Wound protocol initiated.
[2019-06-19] VITALS: BP 140/79
[2019-06-19] MEDS: Zolpidem 5mg tab ORAL PRN (00:45)
[2019-06-19 04:00] VITALS: BP 126/75
--- NOTE | 2019-06-19 07:08 | NUR ---
HAND-OFF: Report given to Belem ALMANZAR.
--- NOTE | 2019-06-19 07:09 | NUR ---
NURSE NOTES: Received patient in bed asleep. No SOB or acute distress. IV line intact and patent, no s/s of infiltration. Wound dressings intact. HOB elevated, bed locked in lowest position, call light within reach. Will continue plan of care.
[2019-06-19 08:00] VITALS: BP 130/69
[2019-06-19] MEDS: Flonase Nasal Inhaler 16gm NASAL SCH (08:29)
[2019-06-19] MEDS: Ascorbic Acid 500mg tab ORAL SCH (08:29)
[2019-06-19] MEDS: Heparin 5000 units/ml inj SUBQ SCH ×2 (08:29→20:40)
[2019-06-19 12:00] VITALS: BP 127/70
[2019-06-19 16:00] VITALS: BP 132/75
--- NOTE | 2019-06-19 17:20 | General Progress Note ---
Assessment/Plan Assessment/Plan: Assessment - Anemia - weight loss - Failure to thrive - declines GI evaluation Recommendation - follow labs - push po - d/c planning Subjective Allergies: Coded Allergies: No Known Allergies (Unverified , 06/12/19) Subjective above noted no new complaints d/w RN unable to care for himself Objective Last 24 Hour Vital Signs Date Time Temp Pulse Resp B/P (MAP) Pulse Ox O2 Delivery O2 Flow Rate FiO2 06/19/19 12:00 97.6 81 17 127/70 (89) 96 06/19/19 09:00 Room Air 06/19/19 08:00 97.5 80 18 130/69 (89) 97 06/19/19 04:00 97.2 71 16 126/75 (92) 91 06/19/19 00:00 98.0 75 12 140/79 (99) 95 06/18/19 21:00 Room Air 06/18/19 20:00 98.4 79 16 139/70 (93) 98 06/18/19 19:56 76 18 95 Room Air 21 Intake and Output 06/18/19 06/19/19 19:00 07:00 Intake Total 775 ml 3550 ml Output Total 400 ml Balance 775 ml 3150 ml Intake Oral 720 ml 600 ml IV Total 55 ml 2500 ml Other 450 ml Output Urine Total 400 ml # Voids 4 4 # Bowel Movements 4 5 Height (Feet): 5 Height (Inches): 5.00 Weight (Pounds): 98 Objective Thin WM NCAT supple CTA RR abd soft ND NT no edema Garrett Jimenez MD Jun 19, 2019 17:20
--- NOTE | 2019-06-19 19:20 | NUR ---
NURSE NOTES: Pt received in bed awake, able to make needs known, dressings changed today, will continue to monitor.
[2019-06-19 20:00] VITALS: BP 142/88
[2019-06-19] MEDS: Terazosin 1mg cap ORAL SCH (20:39)
--- NOTE | 2019-06-19 21:50 | Surgery Progress Note ---
Surgery Progress Note Subjective Symptoms: improved Objective Last 24 Hour Vital Signs Date Time Temp Pulse Resp B/P (MAP) Pulse Ox O2 Delivery O2 Flow Rate FiO2 06/19/19 21:00 Room Air 06/19/19 20:22 79 18 94 Room Air 21 06/19/19 20:00 99.4 84 19 142/88 (106) 95 06/19/19 16:00 98.5 76 18 132/75 (94) 95 06/19/19 12:00 97.6 81 17 127/70 (89) 96 06/19/19 09:00 Room Air 06/19/19 08:00 97.5 80 18 130/69 (89) 97 06/19/19 04:00 97.2 71 16 126/75 (92) 91 06/19/19 00:00 98.0 75 12 140/79 (99) 95 I&O Intake and Output 06/18/19 06/19/19 19:00 07:00 Intake Total 775 ml 3550 ml Output Total 400 ml Balance 775 ml 3150 ml Intake Oral 720 ml 600 ml IV Total 55 ml 2500 ml Other 450 ml Output Urine Total 400 ml # Voids 4 4 # Bowel Movements 4 5 Dressing: saturated Wound: dry Cardiovascular: RSR Respiratory: clear Abdomen: soft, non-tender, present bowel sounds Extremities: no edema, no cyanosis Plan Problems: (1) Cachexia (2) Failure to thrive in adult Assessment & Plan: DAILY ESTIMATED NEEDS: Needs based on Underweight, wasting/ 45.5kg 30-40 kcals/kg 0059-6283 total kcals 1-2 g protein/kg 46-91 g total protein 25-30 mL/kg 5710-3370 total fluid mLs NUTRITION DIAGNOSIS: Malnutrition (severe), in the context of chronic illness R/T years of epigastric pain and gastric acid, abdominal discomfort causing poor oral intake, increased weakness, unable to care well for self, lack of help at home as evidenced by pt admitted w/ severe wasting @ BUE, clavicle area and temporalis, less than 75% of energy intakes compared to estimated needs for months, pt unable to quantify. CURRENT DIET:REGULAR, soft easy chew PO DIET RECOMMENDATIONS: REGULAR, BLAND/ texture as tolerated or per LEAD ELECTRICAL [employer]OLS ENGINEER ADDITIONAL RECOMMENDATIONS: * Calibrated bedscale wt, weekly wt monitoring given underweight status * Ensure Enlive TID w/ meals * GI consult for c/o epigastric pain/ gastric acid * Snacks BID in b/w meals as tolerated * Monitor lytes, replete as needed * Wound care: MVI x 1, Vit C 250mg QD as tolerated (3) Open wound (4) Abdominal pain Assessment & Plan: c/o abdominal discomfort ongoing for years but feels getting worse likely constipation PPI mom Nonobstructive but nonspecific bowel gas pattern. No free air. Bibasilar opacities. Degenerative changes of the hips and spine. will follow with recs d/c planning push po diet supplementation (5) Open wound of thigh Assessment & Plan: patient identified on admission to have a left posterior prominal thigh open wound 2cm x 1cm x 1cm with 100% sloth and some barbie wound erythema. mild odor. no drainage. likely seems to have been prior small abscess or carbuncle that has opened up and not healed well also has sacral erythema stage 1 noted wash left thigh wound daily with NS, apply therahoney gauze and dressing daily may require debridement skin protectant for sacral area and optifoam dressing turn q2h off load pressure with pillows nutritional optimization will follow with Devyn Conde Jun 19, 2019 21:50
--- NOTE | 2019-06-19 22:28 | Pulmonology Progress Note ---
Assessment/Plan Assessment/Plan Pulmonary Progress Note Assessment/Plan: IMPRESSION: 1. Failure to thrive 2. Protein-calorie malnutrition. 3. Mild hyponatremia. 4. Contraction alkalosis, likely mild leukopenia. 5. Anemia. 6. Possible cognitive dysfunction. 7. possible swallow dysfunction PLAN wound care SNF placement CM to assist impression, plan, and exam edited and reviewed in detail care discussed with RN Subjective Allergies: Coded Allergies: No Known Allergies (Unverified , 06/12/19) Subjective care noted same weak alert and oriented x3 DC planning SNF Objective Vital Signs Noted Height (Feet): 5 Height (Inches): 5.00 Weight (Pounds): 100 Objective GENERAL: A well-developed male, frail overall. NAD wounds noted HEENT: Negative. Extraocular movements are grossly intact. NECK: Supple. Without jugular venous distention. LUNGS: Fairly clear and symmetric. CARDIAC: S1 and S2. Regular rate and rhythm. Borderline tachycardia without murmurs, rubs, gallops. ABDOMEN: Soft, nontender, nondistended. EXTREMITIES: No cyanosis, clubbing, or edema. NEUROLOGIC: Grossly nonfocal and weak. reviewed and edited Subjective ROS Limited/Unobtainable: No Allergies: Coded Allergies: No Known Allergies (Unverified , 06/12/19) Objective Last 24 Hour Vital Signs Date Time Temp Pulse Resp B/P (MAP) Pulse Ox O2 Delivery O2 Flow Rate FiO2 06/19/19 21:00 Room Air 06/19/19 20:22 79 18 94 Room Air 21 06/19/19 20:00 99.4 84 19 142/88 (106) 95 06/19/19 16:00 98.5 76 18 132/75 (94) 95 06/19/19 12:00 97.6 81 17 127/70 (89) 96 06/19/19 09:00 Room Air 06/19/19 08:00 97.5 80 18 130/69 (89) 97 06/19/19 04:00 97.2 71 16 126/75 (92) 91 06/19/19 00:00 98.0 75 12 140/79 (99) 95 Intake and Output 06/18/19 06/19/19 19:00 07:00 Intake Total 775 ml 3550 ml Output Total 400 ml Balance 775 ml 3150 ml Intake Oral 720 ml 600 ml IV Total 55 ml 2500 ml Other 450 ml Output Urine Total 400 ml # Voids 4 4 # Bowel Movements 4 5 Current Medications Medications (Trade) Dose Ordered Sig/Dania Route PRN Reason Start Time Stop Time Status Last Admin Dose Admin Acetaminophen (Tylenol) 650 mg Q4H PRN ORAL Mild Pain/Temp > 100.5 06/12/19 06:45 07/12/19 06:44 Al Hydroxide/Mg Hydroxide (Mylanta) 30 ml Q4H PRN ORAL EPIGASTRIC PAIN 06/18/19 12:45 07/18/19 12:44 06/19/19 14:14 Ascorbic Acid (Vitamin C) 250 mg DAILY ORAL 06/13/19 09:00 07/13/19 08:59 06/18/19 08:14 Fluticasone Propionate (Flonase) 1 spray DAILY NASAL 06/12/19 10:30 07/12/19 10:29 06/19/19 08:29 Gabapentin (Neurontin) 300 mg BID ORAL 06/12/19 09:00 07/12/19 08:59 06/19/19 18:37 Heparin Sodium (Porcine) (Heparin 5000 units/ml) 5,000 units EVERY 12 HOURS SUBQ 06/12/19 09:00 07/12/19 08:59 06/19/19 20:40 Multivitamins (Multivitamins) 1 tab DAILY ORAL 06/13/19 09:00 07/13/19 08:59 06/19/19 08:27 Pantoprazole (Protonix) 40 mg DAILY ORAL 06/12/19 09:00 07/12/19 08:59 06/19/19 08:26 Terazosin HCl (Hytrin) 2 mg BEDTIME ORAL 06/12/19 21:00 07/12/19 20:59 06/19/19 20:39 Zolpidem Tartrate (Ambien) 5 mg HSPRN PRN ORAL Insomnia 06/16/19 21:47 06/23/19 21:46 06/19/19 00:45 Khang Bolton MD Jun 19, 2019 22:28
[2019-06-20] VITALS: BP 104/51
[2019-06-20] MEDS: Zolpidem 5mg tab ORAL PRN (01:19)
[2019-06-20 04:00] VITALS: BP 107/59
--- NOTE | 2019-06-20 07:15 | NUR ---
HAND-OFF: Report given to YOHAN Redmond.
[2019-06-20 08:00] VITALS: BP 111/65
--- NOTE | 2019-06-20 08:12 | NUR ---
pt awake, A/O x 4, calm . denies pain, no SOB, tolerating diet well, no N/V. Dressing CDI, voiding without difficulties. call light within reach, bed in low position, bed alarm on, fall precaution maintained. will continue to monitor.
[2019-06-20] MEDS: Ascorbic Acid 500mg tab ORAL SCH (08:35)
[2019-06-20] MEDS: Heparin 5000 units/ml inj SUBQ SCH ×2 (08:35→20:42)
[2019-06-20] MEDS: Flonase Nasal Inhaler 16gm NASAL SCH (08:38)
[2019-06-20 11:32] VITALS: BP 103/53
--- NOTE | 2019-06-20 11:47 | Surgery Progress Note ---
Surgery Progress Note Subjective Symptoms: improved, tolerating diet, voiding well, passing flatus, BM Objective Last 24 Hour Vital Signs Date Time Temp Pulse Resp B/P (MAP) Pulse Ox O2 Delivery O2 Flow Rate FiO2 06/20/19 11:32 97.9 79 19 103/53 (70) 96 06/20/19 09:42 Room Air 06/20/19 08:00 97.7 83 19 111/65 (80) 94 06/20/19 04:00 97.8 81 21 107/59 (75) 95 06/20/19 00:00 97.8 88 20 104/51 (68) 97 06/19/19 21:00 Room Air 06/19/19 20:22 79 18 94 Room Air 21 06/19/19 20:00 99.4 84 19 142/88 (106) 95 06/19/19 16:00 98.5 76 18 132/75 (94) 95 06/19/19 12:00 97.6 81 17 127/70 (89) 96 I&O Intake and Output 06/19/19 06/20/19 19:00 07:00 Intake Total 1200 ml 240 ml Balance 1200 ml 240 ml Intake Oral 240 ml Other 1200 ml # Voids 2 # Bowel Movements 1 2 Cardiovascular: RSR Respiratory: clear Abdomen: soft, present bowel sounds Extremities: no edema, no tenderness, no cyanosis Plan Problems: (1) Cachexia (2) Failure to thrive in adult Assessment & Plan: DAILY ESTIMATED NEEDS: Needs based on Underweight, wasting/ 45.5kg 30-40 kcals/kg 2676-2347 total kcals 1-2 g protein/kg 46-91 g total protein 25-30 mL/kg 9305-9525 total fluid mLs NUTRITION DIAGNOSIS: Malnutrition (severe), in the context of chronic illness R/T years of epigastric pain and gastric acid, abdominal discomfort causing poor oral intake, increased weakness, unable to care well for self, lack of help at home as evidenced by pt admitted w/ severe wasting @ BUE, clavicle area and temporalis, less than 75% of energy intakes compared to estimated needs for months, pt unable to quantify. CURRENT DIET:REGULAR, soft easy chew PO DIET RECOMMENDATIONS: REGULAR, BLAND/ texture as tolerated or per ENCODING MACHINE OPERATOR ADDITIONAL RECOMMENDATIONS: * Calibrated bedscale wt, weekly wt monitoring given underweight status * Ensure Enlive TID w/ meals * GI consult for c/o epigastric pain/ gastric acid * Snacks BID in b/w meals as tolerated * Monitor lytes, replete as needed * Wound care: MVI x 1, Vit C 250mg QD as tolerated (3) Open wound (4) Abdominal pain Assessment & Plan: c/o abdominal discomfort ongoing for years but feels getting worse likely constipation PPI mom Nonobstructive but nonspecific bowel gas pattern. No free air. Bibasilar opacities. Degenerative changes of the hips and spine. will follow with recs d/c planning push po diet supplementation (5) Open wound of thigh Assessment & Plan: patient identified on admission to have a left posterior prominal thigh open wound 2cm x 1cm x 1cm with 100% sloth and some barbie wound erythema. mild odor. no drainage. likely seems to have been prior small abscess or carbuncle that has opened up and not healed well also has sacral erythema stage 1 noted wash left thigh wound daily with NS, apply therahoney gauze and dressing daily may require debridement skin protectant for sacral area and optifoam dressing turn q2h off load pressure with pillows nutritional optimization will follow with recDevyn Montilla Jun 20, 2019 11:47
[2019-06-20 16:00] VITALS: BP 127/60
--- NOTE | 2019-06-20 17:45 | Pulmonology Progress Note ---
Assessment/Plan Assessment/Plan Pulmonary Progress Note Assessment/Plan: IMPRESSION: 1. Failure to thrive 2. Protein-calorie malnutrition. 3. Mild hyponatremia. 4. Contraction alkalosis, likely mild leukopenia. 5. Anemia. 6. Possible cognitive dysfunction. 7. possible swallow dysfunction PLAN wound care SNF placement [place] [facility] CM to assist impression, plan, and exam edited and reviewed in detail care discussed with RN Subjective Allergies: Coded Allergies: No Known Allergies (Unverified , 06/12/19) Subjective care noted same weak alert and oriented x3 DC planning SNF Objective Vital Signs Noted Height (Feet): 5 Height (Inches): 5.00 Weight (Pounds): 100 Objective GENERAL: A well-developed male, frail overall. NAD wounds noted HEENT: Negative. Extraocular movements are grossly intact. NECK: Supple. Without jugular venous distention. LUNGS: Fairly clear and symmetric. CARDIAC: S1 and S2. Regular rate and rhythm. Borderline tachycardia without murmurs, rubs, gallops. ABDOMEN: Soft, nontender, nondistended. EXTREMITIES: No cyanosis, clubbing, or edema. NEUROLOGIC: Grossly nonfocal and weak. reviewed and edited Subjective ROS Limited/Unobtainable: No Allergies: Coded Allergies: No Known Allergies (Unverified , 06/12/19) Objective Last 24 Hour Vital Signs Date Time Temp Pulse Resp B/P (MAP) Pulse Ox O2 Delivery O2 Flow Rate FiO2 06/20/19 16:55 97.9 06/20/19 16:00 98.5 82 18 127/60 (82) 96 06/20/19 11:32 97.9 79 19 103/53 (70) 96 06/20/19 09:42 Room Air 06/20/19 08:00 97.7 83 19 111/65 (80) 94 06/20/19 04:00 97.8 81 21 107/59 (75) 95 06/20/19 00:00 97.8 88 20 104/51 (68) 97 06/19/19 21:00 Room Air 06/19/19 20:22 79 18 94 Room Air 21 06/19/19 20:00 99.4 84 19 142/88 (106) 95 Intake and Output 06/19/19 06/20/19 19:00 07:00 Intake Total 1200 ml 240 ml Balance 1200 ml 240 ml Intake Oral 240 ml Other 1200 ml # Voids 2 # Bowel Movements 1 2 Current Medications Medications (Trade) Dose Ordered Sig/Daina Route PRN Reason Start Time Stop Time Status Last Admin Dose Admin Acetaminophen (Tylenol) 650 mg Q4H PRN ORAL Mild Pain/Temp > 100.5 06/12/19 06:45 07/12/19 06:44 06/20/19 16:25 Al Hydroxide/Mg Hydroxide (Mylanta) 30 ml Q4H PRN ORAL EPIGASTRIC PAIN 06/18/19 12:45 07/18/19 12:44 06/20/19 16:24 Ascorbic Acid (Vitamin C) 250 mg DAILY ORAL 06/13/19 09:00 07/13/19 08:59 06/18/19 08:14 Fluticasone Propionate (Flonase) 1 spray DAILY NASAL 06/12/19 10:30 07/12/19 10:29 06/20/19 08:38 Gabapentin (Neurontin) 300 mg BID ORAL 06/12/19 09:00 07/12/19 08:59 06/20/19 17:39 Heparin Sodium (Porcine) (Heparin 5000 units/ml) 5,000 units EVERY 12 HOURS SUBQ 06/12/19 09:00 07/12/19 08:59 06/19/19 20:40 Multivitamins (Multivitamins) 1 tab DAILY ORAL 06/13/19 09:00 07/13/19 08:59 06/20/19 08:34 Pantoprazole (Protonix) 40 mg DAILY ORAL 06/12/19 09:00 07/12/19 08:59 06/20/19 08:35 Terazosin HCl (Hytrin) 2 mg BEDTIME ORAL 06/12/19 21:00 07/12/19 20:59 06/19/19 20:39 Zolpidem Tartrate (Ambien) 5 mg HSPRN PRN ORAL Insomnia 06/16/19 21:47 06/23/19 21:46 06/20/19 01:19 Khang Bolton MD Jun 20, 2019 17:45
--- NOTE | 2019-06-20 18:32 | General Progress Note ---
Assessment/Plan Assessment/Plan: Assessment - Anemia - weight loss - Failure to thrive - declines GI evaluation Recommendation - follow labs - push po - d/c planning Subjective Allergies: Coded Allergies: No Known Allergies (Unverified , 06/12/19) Subjective above noted no new complaints Objective Last 24 Hour Vital Signs Date Time Temp Pulse Resp B/P (MAP) Pulse Ox O2 Delivery O2 Flow Rate FiO2 06/20/19 16:55 97.9 06/20/19 16:00 98.5 82 18 127/60 (82) 96 06/20/19 11:32 97.9 79 19 103/53 (70) 96 06/20/19 09:42 Room Air 06/20/19 08:00 97.7 83 19 111/65 (80) 94 06/20/19 04:00 97.8 81 21 107/59 (75) 95 06/20/19 00:00 97.8 88 20 104/51 (68) 97 06/19/19 21:00 Room Air 06/19/19 20:22 79 18 94 Room Air 21 06/19/19 20:00 99.4 84 19 142/88 (106) 95 Intake and Output 06/19/19 06/20/19 19:00 07:00 Intake Total 1200 ml 240 ml Balance 1200 ml 240 ml Intake Oral 240 ml Other 1200 ml # Voids 2 # Bowel Movements 1 2 Height (Feet): 5 Height (Inches): 5.00 Weight (Pounds): 98 Objective Thin WM NCAT supple CTA RR abd soft ND NT no edema Garrett Jimenez MD Jun 20, 2019 18:32
--- NOTE | 2019-06-20 19:19 | NUR ---
NURSE NOTES: Pt received in bed eating, head of bed elevated, no c/o pain or signs of distress, able to make needs known, call light within reach, will continue to monitor.
[2019-06-20 20:00] VITALS: BP 114/55
[2019-06-20] MEDS: Terazosin 1mg cap ORAL SCH (20:51)
[2019-06-21] VITALS: BP 119/60
[2019-06-21] MEDS: Zolpidem 5mg tab ORAL PRN (01:21)
[2019-06-21 04:00] VITALS: BP 124/66
--- NOTE | 2019-06-21 07:04 | NUR ---
HAND-OFF: Report given to YOHAN Cole.
--- NOTE | 2019-06-21 07:10 | NUR ---
NURSE NOTES: Nurse report given by YOHAN Shelton. Patient's awake and eating breakfast in bed, high davey, denies pain, no s/s of distress or SOB, AO x 2. IV is saline locked, patent and asymptomatic. Bed low and locked, call light within reach, side rails x 3, bed alarmed is armed. Wounds noted. Will continue to monitor.
[2019-06-21 08:00] VITALS: BP 120/86
[2019-06-21] MEDS: Ascorbic Acid 500mg tab ORAL SCH (09:19)
[2019-06-21] MEDS: Flonase Nasal Inhaler 16gm NASAL SCH (09:27)
[2019-06-21] MEDS: Heparin 5000 units/ml inj SUBQ SCH (09:27)
[2019-06-21 12:00] VITALS: BP 103/49
--- NOTE | 2019-06-21 12:07 | NUR ---
CLAY DRY PRESS MIXER OPERATOR NOTES PT ACCEPTED TO [facility] ROOM 15 BED A. [facility] TO TRANSPORT PT WITH AN ETA OF 1430 NURSE MADE AWARE. AUTHORIZATION FOR SNF PLACEMENT [id number] [facility] AUTH- [id number] [address] [id number]
[2019-06-21 16:00] VITALS: BP 121/60
--- NOTE | 2019-06-21 16:30 | NUR ---
NURSE NOTES: Patient's discharged per Dr. Bray's order. Patient's in stable condition, bedbound, AO x 3, denies pain, no s/s of distress or SOB. Patient's unable to sign belonging list and discharge document. Patient's going to [facility], spoke to YOHAN Farias. Patient will go to room 15 bed A. Spoke to Tere, Next of kin, regarding patient's discharge status. IV is removed, ID band discarded properly. Belonging go with patient to [facility]. Patient's going to the [facility]. Patient's off the floor at 1640. Charge nurse, Amy suarez.
--- NOTE | 2019-06-21 19:11 | Pulmonology Progress Note ---
Assessment/Plan Assessment/Plan Pulmonary Progress Note Assessment/Plan: IMPRESSION: 1. Failure to thrive 2. Protein-calorie malnutrition. 3. Mild hyponatremia. 4. Contraction alkalosis, likely mild leukopenia. 5. Anemia. 6. Possible cognitive dysfunction. 7. possible swallow dysfunction PLAN wound care SNF placement [place] [facility] CM to assist impression, plan, and exam edited and reviewed in detail care discussed with RN Subjective Allergies: Coded Allergies: No Known Allergies (Unverified , 06/12/19) Subjective care noted same weak alert and oriented x3 DC planning SNF Objective Vital Signs Noted Height (Feet): 5 Height (Inches): 5.00 Weight (Pounds): 100 Objective GENERAL: A well-developed male, frail overall. NAD wounds noted HEENT: Negative. Extraocular movements are grossly intact. NECK: Supple. Without jugular venous distention. LUNGS: Fairly clear and symmetric. CARDIAC: S1 and S2. Regular rate and rhythm. Borderline tachycardia without murmurs, rubs, gallops. ABDOMEN: Soft, nontender, nondistended. EXTREMITIES: No cyanosis, clubbing, or edema. NEUROLOGIC: Grossly nonfocal and weak. reviewed and edited seen earlier Subjective ROS Limited/Unobtainable: No Allergies: Coded Allergies: No Known Allergies (Unverified , 06/12/19) Objective Last 24 Hour Vital Signs Date Time Temp Pulse Resp B/P (MAP) Pulse Ox O2 Delivery O2 Flow Rate FiO2 06/21/19 16:00 97.0 80 19 121/60 (80) 96 06/21/19 13:41 78 20 94 Room Air 21 06/21/19 12:00 98.8 81 19 103/49 (67) 98 06/21/19 09:00 Room Air 06/21/19 08:00 98.9 72 19 120/86 (97) 97 06/21/19 04:00 98.0 85 20 124/66 (85) 95 06/21/19 00:00 97.4 80 20 119/60 (79) 96 06/20/19 21:00 Room Air 06/20/19 20:05 72 18 95 Room Air 21 06/20/19 20:00 97.8 89 21 114/55 (74) 95 Intake and Output 06/20/19 06/21/19 19:00 07:00 Intake Total 600 ml 3340 ml Balance 600 ml 3340 ml Intake Oral 240 ml IV Total 2500 ml Other 600 ml 600 ml # Voids 2 # Bowel Movements 4 2 Khang Bolton MD Jun 21, 2019 19:11
--- NOTE | 2019-06-21 21:10 | General Progress Note ---
Assessment/Plan Assessment/Plan: Assessment - Anemia - weight loss - Failure to thrive - declines GI evaluation Recommendation - follow labs - push po - d/c planning Subjective Allergies: Coded Allergies: No Known Allergies (Unverified , 06/12/19) Subjective above noted no new complaints Objective Last 24 Hour Vital Signs Date Time Temp Pulse Resp B/P (MAP) Pulse Ox O2 Delivery O2 Flow Rate FiO2 06/21/19 16:00 97.0 80 19 121/60 (80) 96 06/21/19 13:41 78 20 94 Room Air 21 06/21/19 12:00 98.8 81 19 103/49 (67) 98 06/21/19 09:00 Room Air 06/21/19 08:00 98.9 72 19 120/86 (97) 97 06/21/19 04:00 98.0 85 20 124/66 (85) 95 06/21/19 00:00 97.4 80 20 119/60 (79) 96 Intake and Output 06/20/19 06/21/19 19:00 07:00 Intake Total 600 ml 3340 ml Balance 600 ml 3340 ml Intake Oral 240 ml IV Total 2500 ml Other 600 ml 600 ml # Voids 2 # Bowel Movements 4 2 Height (Feet): 5 Height (Inches): 5.00 Weight (Pounds): 98 Objective Thin WM NCAT supple CTA RR abd soft ND NT no edema Garrett Jimenez MD Jun 21, 2019 21:10
--- NOTE | 2019-06-21 21:15 | Surgery Progress Note ---
Surgery Progress Note Subjective Symptoms: tolerating diet, voiding well, passing flatus, BM Additional Comments Late entry as patient seen and examined this morning. Patient doing much better as of this morning. Is anticipating discharge. Otherwise stable. Plan ready for discharge today. Objective Last 24 Hour Vital Signs Date Time Temp Pulse Resp B/P (MAP) Pulse Ox O2 Delivery O2 Flow Rate FiO2 06/21/19 16:00 97.0 80 19 121/60 (80) 96 06/21/19 13:41 78 20 94 Room Air 21 06/21/19 12:00 98.8 81 19 103/49 (67) 98 06/21/19 09:00 Room Air 06/21/19 08:00 98.9 72 19 120/86 (97) 97 06/21/19 04:00 98.0 85 20 124/66 (85) 95 06/21/19 00:00 97.4 80 20 119/60 (79) 96 I&O Intake and Output 06/20/19 06/21/19 19:00 07:00 Intake Total 600 ml 3340 ml Balance 600 ml 3340 ml Intake Oral 240 ml IV Total 2500 ml Other 600 ml 600 ml # Voids 2 # Bowel Movements 4 2 Cardiovascular: RSR Respiratory: clear Abdomen: soft, flat, non-tender, present bowel sounds Extremities: no edema, no tenderness, no cyanosis Plan Problems: (1) Cachexia (2) Failure to thrive in adult Assessment & Plan: DAILY ESTIMATED NEEDS: Needs based on Underweight, wasting/ 45.5kg 30-40 kcals/kg 6784-3296 total kcals 1-2 g protein/kg 46-91 g total protein 25-30 mL/kg 6616-4920 total fluid mLs NUTRITION DIAGNOSIS: Malnutrition (severe), in the context of chronic illness R/T years of epigastric pain and gastric acid, abdominal discomfort causing poor oral intake, increased weakness, unable to care well for self, lack of help at home as evidenced by pt admitted w/ severe wasting @ BUE, clavicle area and temporalis, less than 75% of energy intakes compared to estimated needs for months, pt unable to quantify. CURRENT DIET:REGULAR, soft easy chew PO DIET RECOMMENDATIONS: REGULAR, BLAND/ texture as tolerated or per FOOD AND NUTRITION SERVICES SUPERVISOR ADDITIONAL RECOMMENDATIONS: * Calibrated bedscale wt, weekly wt monitoring given underweight status * Ensure Enlive TID w/ meals * GI consult for c/o epigastric pain/ gastric acid * Snacks BID in b/w meals as tolerated * Monitor lytes, replete as needed * Wound care: MVI x 1, Vit C 250mg QD as tolerated (3) Open wound (4) Abdominal pain Assessment & Plan: c/o abdominal discomfort ongoing for years but feels getting worse likely constipation PPI mom Nonobstructive but nonspecific bowel gas pattern. No free air. Bibasilar opacities. Degenerative changes of the hips and spine. will follow with recs d/c planning push po diet supplementation (5) Open wound of thigh Assessment & Plan: patient identified on admission to have a left posterior prominal thigh open wound 2cm x 1cm x 1cm with 100% sloth and some barbie wound erythema. mild odor. no drainage. likely seems to have been prior small abscess or carbuncle that has opened up and not healed well also has sacral erythema stage 1 noted wash left thigh wound daily with NS, apply therahoney gauze and dressing daily may require debridement skin protectant for sacral area and optifoam dressing turn q2h off load pressure with pillows nutritional optimization will follow with Devyn Conde Jun 21, 2019 21:15
--- NOTE | 2019-06-22 10:43 | Discharge Summary ---
Discharge Summary Discharge Summary _ DATE OF ADMISSION: 06/12/2019 DATE OF DISCHARGE: 06/21/2019 DISCHARGED BY: Dr. Bray REASON FOR ADMISSION: 83 years old male with no clear medical history , presented for generalized weakness , abdominal pain and poor oral intake. Patient was not able to provide good history. Chest x-ray revealed heterogeneous opacity in the left lung base, consistent with pneumonia. Laboratory work-up revealed mild leukopenia with WBC 4.2 ,hemoglobin 13, hematocrit 36.4 ,platelet count 228. Sodium 128 ,chloride 89. Stable renal parameters. Troponin 0.006. Albumin 3.1. Stable LFT and lipase. Patient was diagnosed with pneumonia , failure to thrive and cachexia. Patient subsequently admitted for further management. CONSULTANTS: GI specialist Dr. Jimenez surgery Dr. Mejia HOSPITAL COURSE: Patient admitted to the hospital and started on the IV hydration. Patient started on empiric antibiotic for pneumonia. Supplemental oxygen provided and titrated to keep pulse oximetry above 92%. Bronchodilator therapy via HHN provided. DVT prophylaxis provided. Venous duplex bilateral lower extremity revealed no evidence of acute DVT. GI specialist followed. Patient declined GI evaluation. Oral fluids were pushed. Bedside swallow evaluation was completed. Patient was safe to continue current diet with assistance with meals as needed. Protein supplements implemented in plan of care as per manufacturing lead recommendation. TSH and free T4 within normal limits. Hemoglobin and hematocrit were closely monitored with goal to keep hemoglobin above 7. Prior to discharge hemoglobin 10.7, hematocrit 29.9. KUB revealed no acute abdominal process. Bowel regimen instituted. GI prophylaxis provided. Supportive care provided. Renal parameters and electrolytes were closely monitored. Sodium improved with IV hydration. Patient presented with left thigh open wound, likely had prior small abscess versus carbuncle that opened and not healed well. Patient also had a sacral erythema stage I. Wound care provided as per surgeon recommendation with nutritional optimization as per manufacturing lead recommendation. Continue wound care at the facility. Patient completed treatment for pneumonia. Patient required placement to fdc facility for further management. Authorization for SNF placement was obtained, and placement was found . Patient was stable for transfer. FINAL DIAGNOSES: Failure to thrive in adult /with weight loss Pneumonia, status post treatment Protein calorie malnutrition Cachexia Hyponatremia Contraction alkalosis Mild leukopenia -resolved Anemia Open wound of thigh DISCHARGE MEDICATIONS: See Medication Reconciliation list. DISCHARGE INSTRUCTIONS: Patient was discharged to the fdc facility. Follow up with medical doctor at the facility. I have been assigned to dictate discharge summary for this account. I was not involved in the patient's management. Cassie Elder NP Jun 22, 2019 10:43
--- NOTE | 2019-06-23 17:48 | Diagnostic Imaging Report ---
APPROVED REPORT CPT Code: 72527 Present Symptoms Comments: EDEMA <Conclusion> Imaging reveals a patent deep venous system bilaterally. There is no evidence of thrombus within the common femoral, superficial femoral, popliteal or tibial segments. The greater saphenous veins are within normal limits. Doppler indicates normal spontaneous flow within these segments.
== END 2019-06-21 16:56 | DRG 139 ==
LOC: EDBD 01:22 → EMR 01:50 → EDBEDREQ 04:19 → 4E 04:28
DX: J18.9 Pneumonia, unspecified organism (principal); E46 Unspecified protein-calorie malnutrition; R62.7 Adult failure to thrive; D64.9 Anemia, unspecified; E87.1 Hypo-osmolality and hyponatremia; E87.3 Alkalosis; S71.102A Unspecified open wound, left thigh, initial encounter; X58.XXXA Exposure to other specified factors, initial encounter; R10.13 Epigastric pain; Z60.2 Problems related to living alone; K21.9 Gastro-esophageal reflux disease without esophagitis; Z68.1 Body mass index [BMI] 19.9 or less, adult
CPT/HCPCS: 36415; 71045; 74018; 80053; 81003; 82150; 83690; 84439; 84443; 84484; 85007; 85025; 85610; 85651; 85730; 86140; 93970; 94664; 96361; 96365; 96367; 99285; J7030